=== PATIENT | male | born 1945 | race Caucasian/White ===

== ENCOUNTER 2019-09-18 07:54 | Outpatient (CLI) | payer MEDICARE, SELFPAY ==
[2019-09-18 08:11] LABS: Basophils Absolute Auto 0.05 K/mm3 (0.00-0.10); Basophils Percent Auto 0.8 % (0.0-1.0); Eosinophils Absolute Auto 0.38 K/mm3 (0.02-0.50); Hematocrit 45.2 % (37.0-46.0); Hemoglobin 15.6 g/dL (12.4-15.3); Immature Granulocyte Absolute 0.03 K/mm3 (0.00-0.00); Immature Granulocyte Percent A 0.5 % (0.0-0.0); Lymphocytes Absolute Auto 2.37 K/mm3 (1.10-4.50); Lymphocytes Percent Auto 37.2 % (18.0-42.0); Mean Corpuscular HGB Conc 34.5 g/dL (32.0-36.0); Mean Corpuscular Hemoglobin 31.5 pg (27.0-31.0); Mean Corpuscular Volume 91.1 fL (78.0-102.0); Mean Platelet Volume 9.9 fl (8.7-11.0); Monocytes Absolute Auto 0.68 K/mm3 (0.10-0.90); Monocytes Percent Auto 10.7 % (2.0-11.0); Neutrophils Absolute Auto 2.9 K/mm3 (1.7-7.2); Neutrophils Percent Auto 44.8 % (50.0-70.0); Platelet Count Result 171 K/mm3 (150-420); Red Blood Count 4.96 M/mm3 (4.70-6.10); Red Cell Distribution Width 12.3 % (11.6-14.4); White Blood Count 6.4 K/mm3 (4.8-10.8)
[2019-09-18 09:52] LABS: Hemoglobin A1C 7.7 % (<5.7)
[2019-09-18 09:59] LABS: Alanine Aminotransferase 23 U/L (16-63); Albumin Level 3.4 g/dL (3.4-5.0); Alkaline Phosphatase 66 U/L (46-116); Anion Gap 14.2 mmol/L (7-16); Aspartate Amino Transferase 13 U/L (15-37); Blood Urea Nitrogen 18 mg/dL (7-18); Calcium 8.9 mg/dL (8.5-10.1); Carbon Dioxide 27 mmol/L (21-32); Chloride 106 mmol/L (98-108); Cholesterol 233 mg/dL (0-200); Estimated Glomerular Filt Rate > 60; Glucose 162 mg/dL (70-99); HDL Direct 36 mg/dL (40-60); LDL Cholesterol Calculated 169 mg/dL (<130); Osmolality Calculated 301 mOsm/kg (285-295); Potassium 4.2 mmol/L (3.5-5.1); Sodium 143 mmol/L (136-145); Total Protein 6.6 g/dL (6.4-8.2); Triglycerides 142 mg/dL (0-150)
== END 2019-09-18 07:55 | disposition home or self-care (01) ==
PROVIDERS: PCP Family Medicine; Visit Provider Family Medicine
DX: E78.2 Mixed hyperlipidemia (principal); E11.9 Type 2 diabetes mellitus without complications; I10 Essential (primary) hypertension
CPT/HCPCS: 36415; 80053; 80061; 83036; 85025

== ENCOUNTER 2020-05-20 07:12 | Outpatient (CLI) | payer MEDICARE, SELFPAY ==
[2020-05-20 07:28] LABS: Basophils Absolute Auto 0.05 K/mm3 (0.00-0.10); Basophils Percent Auto 0.9 % (0.0-1.0); Eosinophils Absolute Auto 0.28 K/mm3 (0.02-0.50); Hemoglobin 15.2 g/dL (12.4-15.3); Immature Granulocyte Absolute 0.04 K/mm3 (0.00-0.00); Immature Granulocyte Percent A 0.7 % (0.0-0.0); Lymphocytes Absolute Auto 1.89 K/mm3 (1.10-4.50); Lymphocytes Percent Auto 33.5 % (18.0-42.0); Mean Corpuscular HGB Conc 33.8 g/dL (32.0-36.0); Mean Corpuscular Hemoglobin 31.5 pg (27.0-31.0); Mean Corpuscular Volume 93.2 fL (78.0-102.0); Mean Platelet Volume 9.9 fl (8.7-11.0); Monocytes Absolute Auto 0.56 K/mm3 (0.10-0.90); Monocytes Percent Auto 9.9 % (2.0-11.0); Neutrophils Absolute Auto 2.8 K/mm3 (1.7-7.2); Platelet Count Result 188 K/mm3 (150-420); Red Blood Count 4.83 M/mm3 (4.70-6.10); Red Cell Distribution Width 12.3 % (11.6-14.4); White Blood Count 5.7 K/mm3 (4.8-10.8)
[2020-05-20 07:40] LABS: Hemoglobin A1C 7.1 % (<5.7)
[2020-05-20 07:55] LABS: MALB Creatinine Ratio 10.5 mg/g (0-30); Microalbumin Urine Random 14.9 mg/L
[2020-05-20 08:37] LABS: Alanine Aminotransferase 27 U/L (16-63); Albumin Level 3.5 g/dL (3.4-5.0); Alkaline Phosphatase 72 U/L (46-116); Anion Gap 9 mmol/L (8-16); Aspartate Amino Transferase 11 U/L (15-37); Bilirubin,Total 0.8 mg/dL (0.00-1.00); Blood Urea Nitrogen 16 mg/dL (7-18); Calcium 8.8 mg/dL (8.5-10.1); Carbon Dioxide 26 mmol/L (21-32); Chloride 106 mmol/L (98-108); Cholesterol 157 mg/dL (0-200); Estimated Glomerular Filt Rate > 60; Glucose 154 mg/dL (70-99); HDL Direct 40 mg/dL (40-60); LDL Cholesterol Calculated 94 mg/dL (<130); Osmolality Calculated 296 mOsm/kg (285-295); Potassium 4.2 mmol/L (3.5-5.1); Prostate Specific Antigen 1.4 ng/mL (< OR = 4.0); Sodium 141 mmol/L (136-145); Total Protein 6.7 g/dL (6.4-8.2); Triglycerides 117 mg/dL (0-150)
== END 2020-05-20 07:13 | disposition home or self-care (01) ==
PROVIDERS: PCP Family Medicine; Visit Provider Family Medicine
DX: E11.9 Type 2 diabetes mellitus without complications (principal); Z12.5 Encounter for screening for malignant neoplasm of prostate; E78.2 Mixed hyperlipidemia; I10 Essential (primary) hypertension
CPT/HCPCS: 36415; 80053; 80061; 82043; 83036; 84153; 85025; G0103

== ENCOUNTER 2021-02-24 07:11 | Outpatient (CLI) | payer MEDICARE, SELFPAY ==
[2021-02-24 07:32] LABS: Basophils Absolute Auto 0.04 K/mm3 (0.00-0.10); Basophils Percent Auto 0.7 % (0.0-1.0); Eosinophils Absolute Auto 0.26 K/mm3 (0.02-0.50); Eosinophils Percent Auto 4.3 % (1.0-6.0); Hematocrit 45.3 % (37.0-46.0); Hemoglobin 15.4 g/dL (12.4-15.3); Immature Granulocyte Absolute 0.03 K/mm3 (0.00-0.00); Immature Granulocyte Percent A 0.5 % (0.0-0.0); Lymphocytes Absolute Auto 2.22 K/mm3 (1.10-4.50); Lymphocytes Percent Auto 36.5 % (18.0-42.0); Mean Corpuscular Hemoglobin 31.9 pg (27.0-31.0); Mean Corpuscular Volume 93.8 fL (78.0-102.0); Mean Platelet Volume 9.8 fl (8.7-11.0); Monocytes Absolute Auto 0.51 K/mm3 (0.10-0.90); Monocytes Percent Auto 8.4 % (2.0-11.0); Neutrophils Percent Auto 49.6 % (50.0-70.0); Platelet Count Result 184 K/mm3 (150-420); Red Blood Count 4.83 M/mm3 (4.70-6.10); Red Cell Distribution Width 12.4 % (11.6-14.4); White Blood Count 6.1 K/mm3 (4.8-10.8)
[2021-02-24 07:44] LABS: Hemoglobin A1C 7.8 % (<5.7)
[2021-02-24 08:12] LABS: Alanine Aminotransferase 37 U/L (16-63); Albumin Level 3.6 g/dL (3.4-5.0); Alkaline Phosphatase 59 U/L (46-116); Anion Gap 16 mmol/L (8-16); Aspartate Amino Transferase 16 U/L (15-37); Bilirubin,Total 0.9 mg/dL (0.00-1.00); Blood Urea Nitrogen 28 mg/dL (7-18); Calcium 8.8 mg/dL (8.5-10.1); Carbon Dioxide 24 mmol/L (21-32); Chloride 105 mmol/L (98-108); Cholesterol 163 mg/dL (0-200); Estimated Glomerular Filt Rate > 60; Glucose 134 mg/dL (70-99); HDL Direct 40 mg/dL (40-60); LDL Cholesterol Calculated 98 mg/dL (<130); Osmolality Calculated 307 mOsm/kg (285-295); Potassium 4.4 mmol/L (3.5-5.1); Sodium 145 mmol/L (136-145); Total Protein 6.6 g/dL (6.4-8.2); Triglycerides 124 mg/dL (0-150)
== END 2021-02-24 07:12 | disposition home or self-care (01) ==
LOC: CHSLAB 07:15
PROVIDERS: PCP Nurse Practitioner; Visit Provider Nurse Practitioner
DX: E11.9 Type 2 diabetes mellitus without complications (principal); I10 Essential (primary) hypertension; E78.2 Mixed hyperlipidemia
CPT/HCPCS: 36415; 80053; 80061; 83036; 85025

== ENCOUNTER 2021-08-31 17:38 | Inpatient (IN) | payer MEDICARE, SELFPAY ==
[2021-08-31] VITALS (7 sets, daily range): BP systolic 153–173; BP diastolic 64–76; PULSE 70–99; RESP 18–24; TEMP 37.7; O2SAT 70–96
--- NOTE | ~2021-08-31 | XR_ITS ---
XR chest 1V portable DATE: 09/03/2021 06:55 INDICATION: Covid-positive. Pneumonia. TECHNIQUE: Portable AP chest on 09/03/2021 at 0653 hours COMPARISON: 09/01/2021 CTA chest FINDINGS: There are patchy infiltrates in the mid and particularly lower lung zones, some air broncho grams noted in the left lower lobe. Findings are consistent with bilateral pneumonia. No pleural effu freida. Heart size is not optimally evaluated on AP projection because of magnification. Diffuse osteopenia. Degenerative spurring of the thoracic spine. IMPRESSION: Persistent bilateral, a mid and lower lung zone infiltrates consistent with bilateral pne umonia, likely Covid Reviewed, dictated and finalized at location A. ANICAL DESIGN TECHNICIAN IMPRESSION: Persistent bilateral, a mid and lower lung zone infiltrates consist ent with bilateral pneumonia, likely Covid
--- NOTE | ~2021-08-31 | CT_ITS ---
EXAMINATION: CT diagnostic chest wo con DATE: 08/31/2021 20:59 INDICATION: Shortness of breath, COVID 19 positive TECHNIQUE: Computed tomography (CT) of the chest was performed without intravenous contrast. The dose -length product (DLP) was 935.38 mGy-cm. Automated exposure control and iterative reconstruction tech Yoovi were employed. COMPARISON: None FINDINGS: There are groundglass opacities throughout the lungs, worst in the mid and lower lung zones . There is no pleural effusion or pneumothorax. The heart size is normal. There is calcified coronary artery atherosclerosis. There are no pathologically enlarged thoracic lymph nodes. Nodules of the ri ght thyroid lobe measure up to 2.1 cm. There is a small sliding hiatal hernia. Stones are present in the nondistended gallbladder. There are bridging osteophytes at multiple levels in the spine, consist ent with diffuse idiopathic skeletal hyperostosis (DISH). IMPRESSION: 1. Diffuse lung disease in a pattern consistent with COVID 19 pneumonia. 2. Indeterminate right thyroid nodules, consider thyroid ultrasound for risk stratification. 3. Cholelithiasis. Reviewed, dictated and finalized at location F. HOUSE KEEPER IMPRESSION: 1. Diffuse lung disease in a pattern consistent with COVID 19 pneumonia. 2. Indeterminate right thyroid nodules, consider thyroid ultrasound for risk st ratification. 3. Cholelithiasis.
--- NOTE | ~2021-08-31 | CT_ITS ---
EXAMINATION: CTA chest PE protocol EXAM DATE: 09/01/2021 15:18 INDICATION: elevated dimer SOB/COVID Positive/Elevated D Dimer TECHNIQUE: Spiral CTA of the chest (pulmonary arteries) was performed with 100 cc Omnipaque 350 intr avenous contrast injection. Images were acquired during the pulmonary arterial phase. Coronal maxi mum intensity projection 3D-reconstructions were created by the technologist on dedicated workstation . Axial, coronal and sagittal reformatted images were reviewed. The dose-length product (DLP) for t his examination was 1008.50 mGy-cm. The exposure was tailored according to patient size (auto mA ex posure control), and iterative reconstruction (ASIR) was used as additional dose reduction technique. Comparison is made to prior examination from 08/31/2021. FINDINGS: The main, central pulmonary arteries are dilated which can indicate elevated pulmonary thad rial pressure, pulmonary arterial hypertension. Pulmonary arteries are well opacified and without in traluminal filling defects. No thoracic aortic dissection. There is moderate amount of bilateral, lower lobe predominant groundglass airspace disease. Appearance is consistent with COVID pneumonia wh ich is most likely given community prevalence. There are no pleural or pericardial effusions. Trac heobronchial tree is patent. Mild reactive lymphadenopathy. There is no pneumothorax. Mild cardi omegaly. Thyroid nodules. There is moderate coronary arterial calcification, arterial sclerosis. Up per abdomen is unremarkable. Patient has diffuse idiopathic skeletal hyperostosis (DISH). IMPRESSION: 1. No pulmonary emboli. 2. Moderate amount of airspace disease probably COVID pneumonia. 3. Cardiomegaly. Dilated central pulmonary arteries. Reviewed, dictated and finalized at location G. ITY IMPROVEMENT COORDINATOR
--- NOTE | ~2021-08-31 | XR_ITS ---
XR chest 1V portable DATE: 09/04/2021 07:34 INDICATION: Shortness of breath. Covid infection. TECHNIQUE: Portable upright AP chest on 09/04/2021 at 0712 hours COMPARISON: 09/03/2021 portable AP chest 09/01/2021 CTA chest FINDINGS: There is moderate interval improvement of bilateral primarily mid and lower lung zone infil trates since 09/03/2021. No pleural effusion or pneumothorax. Heart size appears borderline. IMPRESSION: Moderate improvement of bilateral infiltrates since 09/03/2021 Reviewed, dictated and finalized at location A. 'S GARMENT FITTER
--- NOTE | 2021-08-31 18:01 | ECG_ITS ---
Measurements Intervals [place] Rate: 86 P: 23 SD: 239 QRS: -12 QRSD: 101 T: 66 QT: 331 QTc: 396 Interpretive Statements SINUS RHYTHM WITH FIRST DEGREE AV BLOCK WITH MARKED RHYTHM IRREGULARITY, POSSIBLE NON-CONDUCTED PAC, SA BLOCK, AV BLOCK LEFT VENTRICULAR HYPERTROPHY BASELINE ARTIFACT- I, II, III ABNORMAL ECG Electronically Signed On 08-31-2021 20:29:42 OCCUPATIONAL MEDICINE PHYSICIAN by Jefe Valle D.O.
[2021-08-31 18:42] LABS: Basophils Absolute Auto 0.02 K/mm3 (0.00-0.10); Basophils Percent Auto 0.2 % (0.0-1.0); Eosinophils Percent Auto 1.1 % (1.0-6.0); Immature Granulocyte Absolute 0.04 K/mm3 (0.00-0.00); Immature Granulocyte Percent A 0.4 % (0.0-0.0); Lymphocytes Absolute Auto 1.04 K/mm3 (1.10-4.50); Lymphocytes Percent Auto 11.1 % (18.0-42.0); Mean Corpuscular HGB Conc 34.9 g/dL (32.0-36.0); Mean Corpuscular Hemoglobin 31.8 pg (27.0-31.0); Mean Corpuscular Volume 91.1 fL (78.0-102.0); Mean Platelet Volume 10.6 fl (8.7-11.0); Monocytes Absolute Auto 0.36 K/mm3 (0.10-0.90); Monocytes Percent Auto 3.8 % (2.0-11.0); Neutrophils Absolute Auto 7.9 K/mm3 (1.7-7.2); Neutrophils Percent Auto 83.4 % (50.0-70.0); Platelet Count Result 198 K/mm3 (150-420); Red Blood Count 4.72 M/mm3 (4.70-6.10); White Blood Count 9.4 K/mm3 (4.8-10.8)
[2021-08-31 18:47] LABS: Base Excess ABG 0.4 mmol/L (0-2); Fractional Inspired Oxygen 21 %; HCO3 ABG 21.9 mmol/L (23-29); Modified Allen's Test Pass; Oxygen Content ABG 17.7 %vol (16.0-22.0); Oxygen Saturation ABG 85.8 % (95-97); Oxyhemoglobin 84.9 % (94-100); PCO2 ABG 27.4 mmHg (35-45); PO2 ABG 45.9 mmHg (75-85); PO2 FiO2 Ratio Arterial Blood 2.19 %; Site Drawn RIGHT RADIAL; Total Hemoglobin 14.9 g/dL (12.0-18.0); pH ABG 7.52 (7.35-7.45)
[2021-08-31 18:48] LABS: Device ROOM AIR
[2021-08-31] MEDS: DEXAMETHASONE SOD PHOS INJ 4 MG/ML VIAL IV PUSH (18:53)
[2021-08-31 18:59] LABS: Alanine Aminotransferase 33 U/L (16-63); Albumin Level 2.4 g/dL (3.4-5.0); Alkaline Phosphatase 65 U/L (46-116); Anion Gap 16 mmol/L (8-16); Aspartate Amino Transferase 36 U/L (15-37); Bilirubin,Total 0.9 mg/dL (0.00-1.00); Blood Urea Nitrogen 30 mg/dL (7-18); Carbon Dioxide 22 mmol/L (21-32); Chloride 96 mmol/L (98-108); Estimated CRCL calculation 53 ml/min; Estimated Glomerular Filt Rate 53; Glucose 236 mg/dL (70-99); Osmolality Calculated 292 mOsm/kg (285-295); Potassium 3.5 mmol/L (3.5-5.1); Sodium 134 mmol/L (136-145); Total Protein 6.8 g/dL (6.4-8.2); Troponin I 52.4 ng/L (0.00-60.4)
[2021-08-31 19:02] LABS: Lactic Acid Reflex 5.6 mmol/L (0.4-2.0)
[2021-08-31 19:05] LABS: NT Pro B Type Natriuretic Pept 779 pg/mL (0-450)
--- NOTE | 2021-08-31 19:22 | PC.NURSE ---
Report given to Jazzy
[2021-08-31] MEDS: ALBUTEROL SULFATE (*SP) INHALER 4 PUFF INHALATION (19:42)
[2021-08-31 19:43] LABS: Add Urine Microscopic? YES; Appearance Urine Clear (Clear); Bilirubin Urine 1+ (Negative); Blood Urine Negative (Negative); Color Urine Dark Yellow (Yellow); Glucose Urine UA Trace (Negative); Ketones Urine Trace (Negative); Leukocyte Esterase Ur Negative (Negative); Nitrate Urine Negative (Negative); Protein Urine 2+ (Negative); Specific Grav Ur >= 1.030 (1.010-1.020); pH Urine 5.5 (5.0-8.0)
[2021-08-31 19:45] LABS: SARS-CoV-2 Ag Positive (Negative)
[2021-08-31 19:49] LABS: Bacteria Urine Trace /hpf; RBC Urine 0-2 /hpf (0-2); Squamous Epithelial Cell Urine Few /hpf (Few); WBC Urine 0-3 /hpf (0-3)
[2021-08-31] MEDS: UMECLIDINIUM BROMIDE 62.5 MCG ELLIPTA 1 PUFF INHALATION (20:43)
[2021-08-31] MEDS: FUROSEMIDE INJ 40 MG/4 ML VIAL IV PUSH (21:14)
[2021-08-31] MEDS: SODIUM CHLORIDE 0.9% IV 500 ML 999 ML IV CONT (21:14)
[2021-08-31] MEDS: AZITHROMYCIN 250 MG TABLET 500 MG PO (21:15)
[2021-08-31 21:33] LABS: Reflex Lactic Acid Yes or No Add Lactic
[2021-08-31 22:45] LABS: Base Excess ABG 2.5 mmol/L (0-2); HCO3 ABG 25.1 mmol/L (23-29); Oxygen Content ABG 18.6 %vol (16.0-22.0); Oxygen Saturation ABG 93.8 % (95-97); Oxyhemoglobin 93.3 % (94-100); PCO2 ABG 32.8 mmHg (35-45); PO2 ABG 65.6 mmHg (75-85); Total Hemoglobin 14.2 g/dL (12.0-18.0)
[2021-08-31 22:48] LABS: Device ROOM AIR; Modified Allen's Test Pass; Site Drawn RIGHT RADIAL
[2021-08-31 23:06] LABS: Lactic Acid 1.7 mmol/L (0.4-2.0)
--- NOTE | 2021-08-31 23:39 | ED.SOB ---
HPI - SOB/Dyspnea General Chief Complaint: Shortness of Breath/Dyspnea Stated Complaint: SOB, oxy at +66 Time Seen by Provider: 08/31/21 17:42 Source: patient and RN notes reviewed Mode of arrival: wheelchair Limitations: no limitations History of Present Illness MD elicited complaint: shortness of breath and cough Pertinent past history: diabetes Onset (ago): day(s) (2) Context: recent illness Timing: constant Severity: moderate Exacerbating factors: lying flat Relieving factors: oxygen and bronchodilators Known history of: diabetes Associated symptoms: chest pain, pain with inspiration and cough Treatment prior to arrival: bronchodilator Related Data Home oxygen amount: none Home Medications Medication Instructions Recorded Confirmed amlodipine 10 mg PO DAILY 08/31/21 08/31/21 glimepiride 2 mg PO DAILY 08/31/21 08/31/21 lisinopril 20 mg PO DAILY 08/31/21 08/31/21 metformin 500 mg PO DAILY 08/31/21 08/31/21 metoprolol succinate 100 mg PO DAILY 08/31/21 08/31/21 pravastatin 20 mg PO DAILY 08/31/21 08/31/21 semaglutide [Ozempic] 0.25 mg SUBCUT WEEKLY 08/31/21 08/31/21 Allergies Allergy/AdvReac Type Severity Reaction Status Date / Time No Known Allergies Allergy Unknown Verified 08/31/21 17:57 Review of Systems Review of Systems: All systems reviewed & are unremarkable except as noted in HPI and below PMFSH Past Medical History Medical History Community acquired pneumonia Family History Family History Father Patient's father is Social History Social History Smoking status: Former smoker Second hand tobacco smoke exposure: No Smoking end date: 08/18/71 Alcohol intake: current Exam Const: General: alert and ill appearing Nutritional Appearance: obese Orientation/consciousness: patient oriented x3 HENMT: Head: normal to inspection Ears: external ears normal and TM's normal bilaterally General nose exam: Normal external nose present and Normal nares present Face and sinus: normal facial exam and sinuses nontender Mouth: Yes moist mucous membranes Eyes: Pupils: Equal, round and reactive pupils present Neck: Neck: normal visual inspection and no lymphadenopathy Chest: Chest palpation & inspection: normal inspection of the chest Resp: Effort & Inspection: tachypneic and uses accessory muscles Auscultation: crackles, rales, rhonchi and wheezes Cardio: Rate: regular rate Rhythm: regular rhythm GI: GI Palp: Yes Soft to palpation and No Tenderness to palpation present (GI) Percussion: Yes normal to percussion Auscultation: normal bowel sounds : General: Yes no CVA tenderness Male General Exam: Yes normal external exam Back/Spine/Pelvis: Back: no CVA tenderness Skin: General skin exam: normal color and jaundice Rashes: no rashes Neuro: General: patient oriented x3, moves all extremities, no meningeal signs, no focal motor deficits and CN's II-XI intact bilaterally Extrem: General: normal to inspection and no pedal edema Psych: Affect: normal affect Attitude: cooperative Thought content: Yes Normal thought content present Course Course Emergency Course: Pt for admission Reevaluation(s) Reevaluation #1: Pt was still SOB. Date: 08/31/21 Time: 18:35 Vital Signs Vital signs: Vital Signs Temperature 37.7 C H 08/31/21 18:00 Pulse Rate 99 08/31/21 18:00 Respiratory Rate 24 H 08/31/21 18:00 Blood Pressure 153/64 H 08/31/21 18:00 Pulse Oximetry 70 L 08/31/21 18:00 Temperature 37.7 C H 08/31/21 18:00 Pulse Rate 74 08/31/21 19:43 Respiratory Rate 18 08/31/21 19:43 Blood Pressure 173/72 H 08/31/21 19:14 Pulse Oximetry 91 08/31/21 19:43 MDM - SOB/Dyspnea Differential Diagnosis Differential diagnosis: Likely acute exacerbation of chronic obstructive airways dise
[2021-09-01] VITALS (11 sets, daily range): BP systolic 134–146; BP diastolic 64–84; PULSE 70–112; RESP 16–20; TEMP 36–37.1; O2SAT 85–95; BMI 34.0
--- NOTE | 2021-09-01 00:59 | PC.NURSE ---
Patient admitted to room 209 from the ER, is alert and oriented with no c/o pain, o2 at 4 l per n/c, no distress noted, oriented to room and call light, ambulates independently.
[2021-09-01] MEDS: REMDESIVIR 200 MG/NS 250 ML 200 MG/250 ML BAG 250 MG IVPB (03:17)
[2021-09-01] MEDS: ALBUTEROL SULFATE (*SP) INHALER 4 PUFF INHALATION ×2 (06:06→10:30)
[2021-09-01 07:07] LABS: Basophils Absolute Auto 0.02 K/mm3 (0.00-0.10); Basophils Percent Auto 0.3 % (0.0-1.0); Eosinophils Absolute Auto 0.01 K/mm3 (0.02-0.50); Eosinophils Percent Auto 0.1 % (1.0-6.0); Hemoglobin 13.8 g/dL (12.4-15.3); Immature Granulocyte Absolute 0.04 K/mm3 (0.00-0.00); Immature Granulocyte Percent A 0.6 % (0.0-0.0); Lymphocytes Absolute Auto 1.03 K/mm3 (1.10-4.50); Lymphocytes Percent Auto 14.2 % (18.0-42.0); Mean Corpuscular HGB Conc 33.7 g/dL (32.0-36.0); Mean Corpuscular Hemoglobin 30.9 pg (27.0-31.0); Mean Corpuscular Volume 91.9 fL (78.0-102.0); Mean Platelet Volume 10.6 fl (8.7-11.0); Monocytes Absolute Auto 0.39 K/mm3 (0.10-0.90); Monocytes Percent Auto 5.4 % (2.0-11.0); Neutrophils Absolute Auto 5.8 K/mm3 (1.7-7.2); Neutrophils Percent Auto 79.4 % (50.0-70.0); Platelet Count Result 205 K/mm3 (150-420); Red Blood Count 4.46 M/mm3 (4.70-6.10); Red Cell Distribution Width 11.9 % (11.6-14.4); White Blood Count 7.3 K/mm3 (4.8-10.8)
[2021-09-01 07:14] LABS: INR 1.1; Prothrombin Time 11.5 Seconds (9.50-12.10)
[2021-09-01 07:20] LABS: Alanine Aminotransferase 27 U/L (16-63); Albumin Level 2.2 g/dL (3.4-5.0); Alkaline Phosphatase 58 U/L (46-116); Anion Gap 12 mmol/L (8-16); Aspartate Amino Transferase 30 U/L (15-37); Bilirubin,Total 0.7 mg/dL (0.00-1.00); Blood Urea Nitrogen 25 mg/dL (7-18); Calcium 8.8 mg/dL (8.5-10.1); Carbon Dioxide 28 mmol/L (21-32); Chloride 98 mmol/L (98-108); Estimated CRCL calculation 67 ml/min; Estimated Glomerular Filt Rate > 60; Glucose 251 mg/dL (70-99); Osmolality Calculated 298 mOsm/kg (285-295); Potassium 3.7 mmol/L (3.5-5.1); Sodium 138 mmol/L (136-145); Total Protein 6.4 g/dL (6.4-8.2)
[2021-09-01] MEDS: GLIMEPIRIDE 2 MG TABLET PO (08:00)
[2021-09-01] MEDS: DEXAMETHASONE SOD PHOS INJ 4 MG/ML VIAL IV PUSH ×2 (08:00→20:28)
[2021-09-01] MEDS: UMECLIDINIUM BROMIDE 62.5 MCG ELLIPTA 1 PUFF INHALATION (09:00)
[2021-09-01] MEDS: metFORMIN HCL 500 MG TABLET PO (09:28)
[2021-09-01] MEDS: METOPROLOL SUCCINATE EXT REL 50 MG TABCR 100 MG PO (09:28)
[2021-09-01] MEDS: PRAVASTATIN SODIUM 20 MG TABLET PO (09:29)
[2021-09-01] MEDS: amLODIPine BESYLATE 5 MG TABLET 10 MG PO (09:29)
[2021-09-01] MEDS: lisinopriL 20 MG TABLET PO (09:30)
[2021-09-01] MEDS: guaiFENesin 12 HR 600 MG TABCR PO ×2 (09:30→20:29)
[2021-09-01 10:57] LABS: Base Excess ABG 2.8 mmol/L (0-2); HCO3 ABG 25.4 mmol/L (23-29); Oxygen Content ABG 16.3 %vol (16.0-22.0); Oxygen Saturation ABG 93.1 % (95-97); Oxyhemoglobin 92.7 % (94-100); PCO2 ABG 32.8 mmHg (35-45); PO2 ABG 62.6 mmHg (75-85); Total Hemoglobin 12.5 g/dL (12.0-18.0); pH ABG 7.51 (7.35-7.45)
[2021-09-01 10:58] LABS: Device NASAL CANNULA; Modified Allen's Test Pass; Site Drawn RIGHT RADIAL
[2021-09-01] MEDS: BARICITINIB 2 MG TABLET 4 MG PO (11:38)
--- NOTE | 2021-09-01 13:33 | PM.IMHP ---
H&P: HPI History of Present Illness Date/Time: 09/01/21 13:33 [age]-year-old male that presented to urgent care with complaints of shortness of breath, chills and fevers, hypoxia,diarrhea, and cough. Patient has a past medical history of pneumonia. According to patient he developed shortness of breath, with chills fevers diarrhea and a cough. On this is when he decided to test for covid Which was positive. Patient notes that one of his family members are medical and decided to take his oxygen level. Patient notes that when he took his pulse ox level and his oxygen was 58 . After his family members medical saturation level she noted that he needs our department [facility]IM. This is when the patient presented to the emergency department. Patient is fully vaccinated and is unsure why he might have possibly come in contact with a COVID-positive person. Vital signs 146/71, 112, 16, 98.2, 95% on 4 L nasal cannula, WBC 7.3, hemoglobin 13.8, hematocrit 41.8, platelets 205, ABG pH 7.50, CO2 32.8, O2 65.6, bicarb 25.1, sodium 138, potassium 3.7, BUN 25, creatinine 1.05, glucose 251,, lactic acid 1.7, chest x-ray indicate COVID-pneumonia. The patient denies CP, palpitation, extremity numbness, lightheadedness, dizziness,and constipation. Chief Complaint: Shortness of breath, fevers, chills, diarrhea Review of Systems Review of Systems: A 14 organ system Review of Systems was performed and pertinent positives included in the HPI, otherwise remaining ROS is negative. [facility] Past Medical History Medical History Community acquired pneumonia Family History Family History Father Patient's father is Social History Social History Smoking status: Never smoker Second hand tobacco smoke exposure: No Smoking end date: 08/18/71 Alcohol intake: never Substance use: never Substance use type: does not use Spiritual care concerns: No Meds Home Medications and Allergies Home Medications Medication Instructions Recorded Confirmed Type amlodipine 10 mg PO DAILY 08/31/21 08/31/21 History glimepiride 2 mg PO DAILY 08/31/21 08/31/21 History lisinopril 20 mg PO DAILY 08/31/21 08/31/21 History metformin 500 mg PO DAILY 08/31/21 08/31/21 History metoprolol succinate 100 mg PO DAILY 08/31/21 08/31/21 History pravastatin 20 mg PO DAILY 08/31/21 08/31/21 History semaglutide [Ozempic] 0.25 mg SUBCUT WEEKLY 08/31/21 08/31/21 History Allergies Allergy/AdvReac Type Severity Reaction Status Date / Time No Known Allergies Allergy Unknown Verified 08/31/21 17:57 Vital Signs Vital Signs - 24 hr 08/31/21 18:00 08/31/21 19:14 08/31/21 19:42 Temperature 99.8 F H Pulse Rate 99 91 87 Respiratory Rate 24 H 20 20 Blood Pressure 153/64 H 173/72 H Pulse Oximetry 70 L 91 91 08/31/21 19:43 08/31/21 23:18 08/31/21 23:45 Temperature Pulse Rate 74 70 79 Respiratory Rate 18 18 Blood Pressure 154/76 H Pulse Oximetry 91 90 96 08/31/21 23:55 09/01/21 00:00 09/01/21 03:18 Temperature 96.8 F L 98.8 F Pulse Rate 76 70 70 Respiratory Rate 18 20 20 Blood Pressure 143/72 H 144/64 H Pulse Oximetry 96 90 92 09/01/21 04:00 09/01/21 08:00 09/01/21 09:28 Temperature 98.8 F Pulse Rate 89 80 111 H Respiratory Rate 16 Blood Pressure 136/73 Pulse Oximetry 95 09/01/21 10:30 09/01/21 12:00 Temperature 98.2 F Pulse Rate 112 H Respiratory Rate 16 Blood Pressure 146/70 H Pulse Oximetry 85 L 95 Exam Narrative: GENERAL: This is a well-nourished, well-developed patient, in no apparent distress. HEAD: normocephalic, atraumatic. EYES: PERRL. Sclera clear/white. Vision is grossly intact. EARS: External ears normal, auditory canals clear and without drainage, TMs normal without perforation. Hearing grossly intact. NOSE: External nose
[2021-09-01 14:34] LABS: D Dimer 1.46 mg/L (0.19-0.50)
[2021-09-01] MEDS: LORATADINE 10 MG TABLET PO (18:00)
[2021-09-01] MEDS: BENZONATATE 100 MG CAPSULE 200 MG PO (18:01)
[2021-09-01] MEDS: ENOXAPARIN 30 MG/0.3 ML SYRINGE SUB-Q (20:28)
[2021-09-01] MEDS: REMDESIVIR 100 MG/NS 250 ML 100 MG/250 ML BAG 250 MG IVPB (22:28)
--- NOTE | 2021-09-01 22:50 | PC.NURSE ---
Patient up to bathroom takes portable O2 with him. Patient has SOB after amb to/from bathroom. Alert and forgetful at times. Pleasant. Call light and belonging within reach.
[2021-09-02] VITALS (8 sets, daily range): BP systolic 132–165; BP diastolic 70–86; PULSE 64–111; RESP 14–20; TEMP 36.6–37.4; O2SAT 90–95
--- NOTE | 2021-09-02 00:20 | PC.NURSE ---
Pt resting quietly in bed and doesnt voice any c/o discomfort. Pt' SAo2 is 94% with oxygen on at 5 liters per nasal cannula and no signs of respiratory distress noted.
--- NOTE | 2021-09-02 02:10 | PC.NURSE ---
Pt asleep and no signs of discomfort or respiratory distress noted.
--- NOTE | 2021-09-02 04:00 | PC.NURSE ---
IV antibiotic infusing as ordered. Pt voided 200 ml of medium darvin urine in the urinal.
[2021-09-02 06:27] LABS: Basophils Absolute Auto 0.01 K/mm3 (0.00-0.10); Basophils Percent Auto 0.2 % (0.0-1.0); Eosinophils Absolute Auto 0.12 K/mm3 (0.02-0.50); Eosinophils Percent Auto 2.1 % (1.0-6.0); Hematocrit 36.5 % (37.0-46.0); Hemoglobin 13.2 g/dL (12.4-15.3); Immature Granulocyte Absolute 0.06 K/mm3 (0.00-0.00); Immature Granulocyte Percent A 1.1 % (0.0-0.0); Lymphocytes Absolute Auto 0.94 K/mm3 (1.10-4.50); Lymphocytes Percent Auto 16.5 % (18.0-42.0); Mean Corpuscular HGB Conc 36.2 g/dL (32.0-36.0); Mean Corpuscular Hemoglobin 33.8 pg (27.0-31.0); Mean Corpuscular Volume 93.6 fL (78.0-102.0); Mean Platelet Volume 10.5 fl (8.7-11.0); Monocytes Absolute Auto 0.38 K/mm3 (0.10-0.90); Monocytes Percent Auto 6.7 % (2.0-11.0); Neutrophils Absolute Auto 4.2 K/mm3 (1.7-7.2); Neutrophils Percent Auto 73.4 % (50.0-70.0); Platelet Count Result 228 K/mm3 (150-420); Red Cell Distribution Width 11.9 % (11.6-14.4); White Blood Count 5.7 K/mm3 (4.8-10.8)
[2021-09-02 06:38] LABS: INR 1.1; Prothrombin Time 11.9 Seconds (9.50-12.10)
[2021-09-02 06:44] LABS: Alanine Aminotransferase 39 U/L (16-63); Alkaline Phosphatase 52 U/L (46-116); Anion Gap 8 mmol/L (8-16); Aspartate Amino Transferase 34 U/L (15-37); Bilirubin,Total 0.5 mg/dL (0.00-1.00); Blood Urea Nitrogen 26 mg/dL (7-18); Calcium 8.8 mg/dL (8.5-10.1); Carbon Dioxide 29 mmol/L (21-32); Chloride 101 mmol/L (98-108); Estimated CRCL calculation 92 ml/min; Estimated Glomerular Filt Rate > 60; Glucose 200 mg/dL (70-99); Magnesium 2.1 mg/dL (1.8-2.4); Osmolality Calculated 296 mOsm/kg (285-295); Potassium 3.7 mmol/L (3.5-5.1); Sodium 138 mmol/L (136-145)
[2021-09-02 07:15] LABS: Alanine Aminotransferase 39 U/L (16-63); Aspartate Amino Transferase 34 U/L (15-37)
[2021-09-02] MEDS: ALBUTEROL SULFATE (*SP) INHALER 4 PUFF INHALATION ×5 (08:00→14:30)
[2021-09-02] MEDS: ENOXAPARIN 30 MG/0.3 ML SYRINGE SUB-Q ×2 (09:00→20:19)
[2021-09-02] MEDS: UMECLIDINIUM BROMIDE 62.5 MCG ELLIPTA 1 PUFF INHALATION (09:00)
[2021-09-02] MEDS: guaiFENesin 12 HR 600 MG TABCR PO ×2 (10:02→20:19)
[2021-09-02] MEDS: DEXAMETHASONE SOD PHOS INJ 4 MG/ML VIAL IV PUSH ×2 (10:02→20:17)
[2021-09-02] MEDS: metFORMIN HCL 500 MG TABLET PO (10:02)
[2021-09-02] MEDS: BENZONATATE 100 MG CAPSULE 200 MG PO ×3 (10:03→17:09)
[2021-09-02] MEDS: PRAVASTATIN SODIUM 20 MG TABLET PO (10:03)
[2021-09-02] MEDS: METOPROLOL SUCCINATE EXT REL 50 MG TABCR 100 MG PO (10:04)
[2021-09-02] MEDS: LORATADINE 10 MG TABLET PO (10:04)
[2021-09-02] MEDS: GLIMEPIRIDE 2 MG TABLET PO (10:04)
[2021-09-02] MEDS: amLODIPine BESYLATE 5 MG TABLET 10 MG PO (10:04)
[2021-09-02] MEDS: lisinopriL 20 MG TABLET PO (10:05)
[2021-09-02] MEDS: BARICITINIB 2 MG TABLET 4 MG PO (11:00)
--- NOTE | 2021-09-02 13:35 | WPDPN ---
Progress Note: A&P Assessment and Plan (1) Community acquired pneumonia: Qualifiers: Laterality: unspecified laterality Qualified Code(s): J18.9 - Pneumonia, unspecified organism <Martin Reyes SKIDDERChristinChai - Last Filed: 09/02/21 13:41> Code(s): J18.9 - Pneumonia, unspecified organism <Martin Reyes NINO - Last Filed: 09/02/21 13:41> Status: Acute <Martin ReyesRIANHeatherChai - Last Filed: 09/02/21 13:41> Assessment and Plan: Azithromycin and Rocephin Blood NGTD WBCs and lactic acid within normal limit <Martin ThomsonFERNANDEZ GarciaChristinChai - Last Filed: 09/02/21 13:41> (2) COVID-19: Code(s): U07.1 - COVID-19 <Martin Gallardo Eric NINO - Last Filed: 09/02/21 13:41> Status: Acute <Martin Reyes NINO - Last Filed: 09/02/21 13:41> Assessment and Plan: Continue remdesivir along with dexamethasone and olumiant Continue guaifenesin, Tessalon Perles, Claritin, inhalers, supplemental Patient has been fully vaccinated Will complete home oxygen evaluation on discharg Repeat blood gas not much change from previous blood gas pH 7.51, PCO2 32.8, PO2 62.6, bicarb 25.4 Repeat chest x-ray and ABG in the a.m. <Scottdwain BertoFERNANDEZ GarciaChristinChai - Last Filed: 09/02/21 13:41> Subjective Date/time seen: 09/02/21 13:35 patient condition has improved. Patient notes that he still requires oxygen in the ambulance to the restroom. Patient will more than likely need a home O2 evaluation on discharge. Patient slept well overnight and able to tolerate his meal.the patient denies CP, palpitation, extremity numbness, lightheadedness, dizziness, constipation, diarrhea, chills, or fever. <NINO Potter - Last Filed: 09/02/21 13:41> Review of Systems Review of Systems: A 14 organ system Review of Systems was performed and pertinent positives included in the HPI, otherwise remaining ROS is negative. <NINO Potter - Last Filed: 09/02/21 13:41> Exam Narrative: GENERAL: This is a well-nourished, well-developed patient, in no apparent distress. HEAD: normocephalic, atraumatic. EYES: PERRL. Sclera clear/white. Vision is grossly intact. EARS: External ears normal, auditory canals clear and without drainage, TMs normal without perforation. Hearing grossly intact. NOSE: External nose normal with no obvious nasal discharge, nares without redness, no rhinorrhea. THROAT: Mucous membranes moist, posterior pharynx clear. NECK: Neck supple, non-tender without lymphadenopathy, masses or thyromegaly. CARDIOVASCULAR: Regular rate and rhythm without murmurs, gallops, or rubs. RESPIRATORY: Diminished GASTROINTESTINAL: Abdomen soft, non-tender, nondistended. Bowel sounds are active. No hepato-splenomegaly, or palpable masses. No guarding. SKIN: warm, intact with no suspicious lesions or rash, good texture and turgor. NEURO: awake, alert, and oriented to person, place and time. There were no obvious focal neurologic abnormalities. Steady gait EXTREMITIES: Normal range of motion. No edema. No calf tenderness. Negative Homans sign bilaterally. BACK: Nontender without deformity or crepitance. No flank tenderness. <NINO Potter - Last Filed: 09/02/21 13:41> Objective Data Vital Signs Vital Signs: Vital Signs - 24 hr 09/01/21 15:42 09/01/21 16:00 09/01/21 20:00 Temperature 97 F L 97.4 F L Pulse Rate 72 74 Respiratory Rate 18 18 Blood Pressure 134/84 140/80 Pulse Oximetry 94 94 09/02/21 00:00 09/02/21 04:00 09/02/21 08:00 Temperature 99.3 F 98.2 F 98.4 F Pulse Rate 64 86 100 Respiratory Rate 20 20 16 Blood Pressure 148/73 H 152/86 H 148/75 H Pulse Oximetry 94 90 95 09/02/21 10:04 Temperature Pulse Rate 85 Respiratory Rate Blood Pressure Pulse Oximetry <NINO Potter - Last Filed: 09/02/21 13:41> Intake/Output Intake/Output: Intake & Output 08/30/21 08/31/21 09/01/21 09/02/21 23:59 23:59 23:59 23:59
[2021-09-02] MEDS: REMDESIVIR 100 MG/NS 250 ML 100 MG/250 ML BAG 250 MG IVPB (22:10)
[2021-09-03] VITALS (9 sets, daily range): BP systolic 119–155; BP diastolic 69–80; PULSE 66–87; RESP 18–20; TEMP 36.1–36.8; O2SAT 88–98
--- NOTE | 2021-09-03 00:20 | PC.NURSE ---
Patient alert and oriened x3. Able to verbalize needs. Amb to/from bathroom using portable O2. Gait steady. Cont of Band B. Patient stated several times that he feels really good today and hopes to go home tomorrow . Call light and belongings within reach. IV site clean, dry, intact. Flushed without difficulty.
--- NOTE | 2021-09-03 00:25 | PC.NURSE ---
Pt resting in bed and watching TV. Pt doesnt voice any c/o shortness of breath and oxygen is on at 5 liters per nasal cannula. SAo2 is 95% and no signs of respiratory distress noted.
--- NOTE | 2021-09-03 02:35 | PC.NURSE ---
Pt asleep and respirations remain even and unlabored. No signs of respiratory distress noted.
--- NOTE | 2021-09-03 04:33 | PC.NURSE ---
IV antibiotic infusing as ordered. Pt up to the bathroom to void and doesnt voice any c/o discomfort.
[2021-09-03 06:40] LABS: Base Excess ABG 4.1 mmol/L (0-2); HCO3 ABG 28.1 mmol/L (23-29); Oxygen Content ABG 14.8 %vol (16.0-22.0); Oxygen Saturation ABG 84.8 % (95-97); Oxyhemoglobin 84.6 % (94-100); PO2 ABG 47.4 mmHg (75-85); Total Hemoglobin 12.5 g/dL (12.0-18.0); pH ABG 7.47 (7.35-7.45)
--- NOTE | 2021-09-03 06:40 | PC.NURSE ---
Pt watching tv and doesnt voice any c/o respiratory distress.
[2021-09-03 06:53] LABS: Basophils Absolute Auto 0.02 K/mm3 (0.00-0.10); Basophils Percent Auto 0.2 % (0.0-1.0); Hematocrit 36.8 % (37.0-46.0); Hemoglobin 13.8 g/dL (12.4-15.3); Immature Granulocyte Absolute 0.09 K/mm3 (0.00-0.00); Immature Granulocyte Percent A 0.9 % (0.0-0.0); Lymphocytes Absolute Auto 1.11 K/mm3 (1.10-4.50); Lymphocytes Percent Auto 11.5 % (18.0-42.0); Mean Corpuscular HGB Conc 37.5 g/dL (32.0-36.0); Mean Corpuscular Hemoglobin 35.5 pg (27.0-31.0); Mean Corpuscular Volume 94.6 fL (78.0-102.0); Mean Platelet Volume 10.6 fl (8.7-11.0); Monocytes Absolute Auto 0.46 K/mm3 (0.10-0.90); Monocytes Percent Auto 4.7 % (2.0-11.0); Neutrophils Percent Auto 82.7 % (50.0-70.0); Platelet Count Result 300 K/mm3 (150-420); Red Blood Count 3.89 M/mm3 (4.70-6.10); Red Cell Distribution Width 12.3 % (11.6-14.4); White Blood Count 9.7 K/mm3 (4.8-10.8)
[2021-09-03 06:54] LABS: Alanine Aminotransferase 42 U/L (16-63); Albumin Level 2.1 g/dL (3.4-5.0); Alkaline Phosphatase 53 U/L (46-116); Anion Gap 9 mmol/L (8-16); Aspartate Amino Transferase 25 U/L (15-37); Bilirubin,Total 0.4 mg/dL (0.00-1.00); Blood Urea Nitrogen 25 mg/dL (7-18); Calcium 8.8 mg/dL (8.5-10.1); Carbon Dioxide 27 mmol/L (21-32); Chloride 102 mmol/L (98-108); Estimated CRCL calculation 90 ml/min; Estimated Glomerular Filt Rate > 60; Glucose 157 mg/dL (70-99); Magnesium 1.9 mg/dL (1.8-2.4); Osmolality Calculated 293 mOsm/kg (285-295); Potassium 3.6 mmol/L (3.5-5.1); Sodium 138 mmol/L (136-145)
[2021-09-03 06:55] LABS: INR 1.2; Prothrombin Time 12.7 Seconds (9.50-12.10)
[2021-09-03 07:01] LABS: Modified Allen's Test Pass; Site Drawn RIGHT RADIAL
[2021-09-03 07:02] LABS: Device NASAL CANNULA
[2021-09-03] MEDS: BENZONATATE 100 MG CAPSULE 200 MG PO ×3 (11:30→18:25)
[2021-09-03] MEDS: DEXAMETHASONE SOD PHOS INJ 4 MG/ML VIAL IV PUSH ×2 (11:33→20:02)
[2021-09-03] MEDS: BARICITINIB 2 MG TABLET 4 MG PO (11:33)
[2021-09-03] MEDS: ENOXAPARIN 30 MG/0.3 ML SYRINGE SUB-Q ×2 (11:33→20:02)
[2021-09-03] MEDS: METOPROLOL SUCCINATE EXT REL 50 MG TABCR 100 MG PO (11:34)
[2021-09-03] MEDS: PRAVASTATIN SODIUM 20 MG TABLET PO (11:34)
[2021-09-03] MEDS: amLODIPine BESYLATE 5 MG TABLET 10 MG PO (11:35)
[2021-09-03] MEDS: LORATADINE 10 MG TABLET PO (11:35)
[2021-09-03] MEDS: guaiFENesin 12 HR 600 MG TABCR PO ×2 (11:35→20:02)
[2021-09-03] MEDS: lisinopriL 20 MG TABLET PO (11:36)
[2021-09-03] MEDS: GLIMEPIRIDE 2 MG TABLET PO (11:36)
[2021-09-03] MEDS: metFORMIN HCL 500 MG TABLET PO (11:36)
[2021-09-03] MEDS: UMECLIDINIUM BROMIDE 62.5 MCG ELLIPTA 1 PUFF INHALATION (11:36)
[2021-09-03 13:53] LABS: Base Excess ABG 3.9 mmol/L (0-2); HCO3 ABG 26.7 mmol/L (23-29); Oxygen Content ABG 26.6 %vol (16.0-22.0); Oxygen Saturation ABG 97.2 % (95-97); Oxyhemoglobin 96.5 % (94-100); PCO2 ABG 35.1 mmHg (35-45); PO2 ABG 92.2 mmHg (75-85); Total Hemoglobin 19.6 g/dL (12.0-18.0)
[2021-09-03 13:56] LABS: Modified Allen's Test Pass; Site Drawn RIGHT RADIAL
[2021-09-03 13:57] LABS: Device NASAL CANNULA
[2021-09-03] MEDS: ALBUTEROL SULFATE (*SP) INHALER 4 PUFF INHALATION ×2 (14:30→20:05)
--- NOTE | 2021-09-03 15:06 | WPDPN ---
Progress Note: A&P Assessment and Plan (1) Community acquired pneumonia: Qualifiers: Laterality: unspecified laterality Qualified Code(s): J18.9 - Pneumonia, unspecified organism Code(s): J18.9 - Pneumonia, unspecified organism Status: Acute Assessment and Plan: Azithromycin and Rocephin day 3 out of 7 Blood NGTD WBCs and lactic acid within normal limit (2) COVID-19: Code(s): U07.1 - COVID-19 Status: Acute Assessment and Plan: Continue remdesivir along with dexamethasone and olumiant Continue guaifenesin, Tessalon Perles, Claritin, inhalers, supplemental Patient has been fully vaccinated Will complete home oxygen evaluation on discharg Repeat blood gas not much change from previous blood gas pH 7.51, PCO2 32.8, PO2 62.6, bicarb 25.4 Repeat chest x-ray and ABG in the a.m. Prone atleast 8 hours Worsening ABG patient placed on Ventimask afterwards ABG improved (3) Elevated brain natriuretic peptide (BNP) level: Code(s): R79.89 - Other specified abnormal findings of blood chemistry Status: Acute Assessment and Plan: BNP slightly elevated 779 BNP and echo pending Subjective Date/time seen: 09/03/21 15:06 patient has no complaints today he only notes that he did not feel well overnight due to the environment. Home oxygen evaluation completed today for possible discharge. Patient failed home evaluation on 8 L with activity patients sats dropped to 86%. Patient did admit that he felt dizzy with ambulation. Also his blood gas worsened so he was placed on a venti mask with improvement in his ABG. The patient denies CP, palpitation, extremity numbness, lightheadedness, constipation, diarrhea, chills, or fever. Review of Systems Review of Systems: A 14 organ system Review of Systems was performed and pertinent positives included in the HPI, otherwise remaining ROS is negative. Exam Narrative: GENERAL: This is a well-nourished, well-developed patient, in no apparent distress. HEAD: normocephalic, atraumatic. EYES: PERRL. Sclera clear/white. Vision is grossly intact. EARS: External ears normal, auditory canals clear and without drainage, TMs normal without perforation. Hearing grossly intact. NOSE: External nose normal with no obvious nasal discharge, nares without redness, no rhinorrhea. THROAT: Mucous membranes moist, posterior pharynx clear. NECK: Neck supple, non-tender without lymphadenopathy, masses or thyromegaly. CARDIOVASCULAR: Regular rate and rhythm without murmurs, gallops, or rubs. RESPIRATORY: Diminished GASTROINTESTINAL: Abdomen soft, non-tender, nondistended. Bowel sounds are active. No hepato-splenomegaly, or palpable masses. No guarding. SKIN: warm, intact with no suspicious lesions or rash, good texture and turgor. NEURO: awake, alert, and oriented to person, place and time. There were no obvious focal neurologic abnormalities. Steady gait EXTREMITIES: Normal range of motion. No edema. No calf tenderness. Negative Homans sign bilaterally. BACK: Nontender without deformity or crepitance. No flank tenderness. Objective Data Vital Signs Vital Signs: Vital Signs - 24 hr 09/02/21 16:00 09/02/21 20:00 09/03/21 00:00 Temperature 97.8 F 98.1 F 97.3 F L Pulse Rate 75 69 66 Respiratory Rate 18 20 20 Blood Pressure 136/70 132/78 155/77 H Pulse Oximetry 94 95 09/03/21 04:00 09/03/21 11:15 09/03/21 11:34 Temperature 97.3 F L Pulse Rate 74 85 Respiratory Rate 20 Blood Pressure 133/73 Pulse Oximetry 94 Intake/Output Intake/Output: Intake & Output 08/31/21 09/01/21 09/02/21 09/03/21 23:59 23:59 23:59 23:59 Intake Total 550 2250 1775 350 Output Total 500 200 Balance 550 1750 1575 350 Meds/Results Medications: Active Medications Generic Name Dose Route Start Last Admin Trade Name Freq PRN Reason Stop Dose Admin Acetaminophen 650 mg 08/31/21 23:14 Acetaminophen 325 Mg Tablet PO Q8H P
[2021-09-03 15:52] LABS: NT Pro B Type Natriuretic Pept 548 pg/mL (0-450)
[2021-09-03] MEDS: traZODone HCL 50 MG TABLET PO (20:02)
[2021-09-03] MEDS: REMDESIVIR 100 MG/NS 250 ML 100 MG/250 ML BAG 250 MG IVPB (22:00)
[2021-09-04] VITALS (8 sets, daily range): BP systolic 134–166; BP diastolic 68–96; PULSE 70–88; RESP 16–22; TEMP 35.7–36.6; O2SAT 94–96
[2021-09-04 06:01] LABS: Base Excess ABG 2.2 mmol/L (0-2); HCO3 ABG 25.3 mmol/L (23-29); Oxyhemoglobin 93.6 % (94-100); PCO2 ABG 35.1 mmHg (35-45); PO2 ABG 71.4 mmHg (75-85); Total Hemoglobin 15.2 g/dL (12.0-18.0); pH ABG 7.48 (7.35-7.45)
[2021-09-04 06:26] LABS: Site Drawn RIGHT RADIAL
[2021-09-04 06:27] LABS: Device NASAL CANNULA; Modified Allen's Test Pass
[2021-09-04 06:28] LABS: Alanine Aminotransferase 49 U/L (16-63); Albumin Level 2.4 g/dL (3.4-5.0); Alkaline Phosphatase 54 U/L (46-116); Anion Gap 9 mmol/L (8-16); Aspartate Amino Transferase 29 U/L (15-37); Bilirubin,Total 0.6 mg/dL (0.00-1.00); Blood Urea Nitrogen 23 mg/dL (7-18); Carbon Dioxide 28 mmol/L (21-32); Chloride 101 mmol/L (98-108); Estimated CRCL calculation 79 ml/min; Estimated Glomerular Filt Rate > 60; Glucose 169 mg/dL (70-99); NT Pro B Type Natriuretic Pept 414 pg/mL (0-450); Osmolality Calculated 293 mOsm/kg (285-295); Potassium 4.1 mmol/L (3.5-5.1); Sodium 138 mmol/L (136-145); Total Protein 6.3 g/dL (6.4-8.2)
[2021-09-04 06:37] LABS: Hematocrit 38.3 % (37.0-46.0); Hemoglobin 14.2 g/dL (12.4-15.3); Mean Corpuscular HGB Conc 37.1 g/dL (32.0-36.0); Mean Corpuscular Hemoglobin 35.3 pg (27.0-31.0); Mean Corpuscular Volume 95.3 fL (78.0-102.0); Mean Platelet Volume 10.3 fl (8.7-11.0); Platelet Count Result 335 K/mm3 (150-420); Red Blood Count 4.02 M/mm3 (4.70-6.10); Red Cell Distribution Width 13.2 % (11.6-14.4); White Blood Count 9.6 K/mm3 (4.8-10.8)
[2021-09-04 06:53] LABS: Band Neutrophils Percent 2 % (0-6); Neutrophils Absolute Manual 8.06 K/mm3 (1.3-6.7); Neutrophils Percent Manual 82 % (46-73); Total Cells Counted 100
[2021-09-04 06:54] LABS: Lymphocytes Absolute Manual 0.96 K/mm3 (1.1-4.5); Lymphocytes Percent Manual 10 % (18-44); Monocytes Absolute Manual 0.38 K/mm3 (0.1-0.90); Monocytes Percent Manual 4 % (3-9); Myelocytes Percent 2 %; Platelet Estimate Adequate (Adequate)
[2021-09-04] MEDS: ALBUTEROL SULFATE (*SP) INHALER 4 PUFF INHALATION ×5 (07:29→20:48)
[2021-09-04] MEDS: PRAVASTATIN SODIUM 20 MG TABLET PO (09:22)
[2021-09-04] MEDS: UMECLIDINIUM BROMIDE 62.5 MCG ELLIPTA 1 PUFF INHALATION (09:22)
[2021-09-04] MEDS: lisinopriL 20 MG TABLET PO (09:26)
[2021-09-04] MEDS: SACCHAROMYCES BOULARDII 250 MG CAPSULE PO ×3 (09:26→17:00)
[2021-09-04] MEDS: ENOXAPARIN 30 MG/0.3 ML SYRINGE SUB-Q ×2 (09:26→20:18)
[2021-09-04] MEDS: metFORMIN HCL 500 MG TABLET PO (09:27)
[2021-09-04] MEDS: amLODIPine BESYLATE 5 MG TABLET 10 MG PO (09:27)
[2021-09-04] MEDS: GLIMEPIRIDE 2 MG TABLET PO (09:28)
[2021-09-04] MEDS: BENZONATATE 100 MG CAPSULE 200 MG PO ×3 (09:28→17:01)
[2021-09-04] MEDS: METOPROLOL SUCCINATE EXT REL 50 MG TABCR 100 MG PO (09:28)
[2021-09-04] MEDS: LORATADINE 10 MG TABLET PO (09:28)
[2021-09-04] MEDS: guaiFENesin 12 HR 600 MG TABCR PO ×2 (09:28→20:02)
[2021-09-04] MEDS: DEXAMETHASONE SOD PHOS INJ 4 MG/ML VIAL IV PUSH ×2 (09:29→19:44)
[2021-09-04] MEDS: BARICITINIB 2 MG TABLET 4 MG PO (12:22)
--- NOTE | 2021-09-04 17:23 | PM.IMPN ---
Progress Note: A&P Assessment and Plan (1) Community acquired pneumonia: Qualifiers: Laterality: unspecified laterality Qualified Code(s): J18.9 - Pneumonia, unspecified organism <Doug Haney YASMANI Rm - Last Filed: 09/04/21 17:37> Code(s): J18.9 - Pneumonia, unspecified organism <Doug BoydYASMANI barrera - Last Filed: 09/04/21 17:37> Status: Acute <Doug Haney YASMANI Rm - Last Filed: 09/04/21 17:37> Assessment and Plan: Azithromycin and Rocephin day 3 out of 7 Blood NGTD WBCs and lactic acid within normal limit 09/04/2021 Blood Cx NGTD, continue Ab as noted, Pt is on a venturi-mask <Doug JaimesYASMANI Garcia - Last Filed: 09/04/21 17:37> (2) COVID-19: Code(s): U07.1 - COVID-19 <Doug JaimesYASMANI Garcia - Last Filed: 09/04/21 17:37> Status: Acute <Doug Haney YASMANI Rm - Last Filed: 09/04/21 17:37> Assessment and Plan: Continue remdesivir along with dexamethasone and olumiant Continue guaifenesin, Tessalon Perles, Claritin, inhalers, supplemental Patient has been fully vaccinated Will complete home oxygen evaluation on discharg Repeat blood gas not much change from previous blood gas pH 7.51, PCO2 32.8, PO2 62.6, bicarb 25.4 Repeat chest x-ray and ABG in the a.m. Prone atleast 8 hours Worsening ABG patient placed on Ventimask afterwards ABG improved 09/04/2021 Pt will need another 6 minute walk test and PT evaluation closer to DC, Venturi-mask applied d/t decreased pO2 with this AM labs. <Doug JaimesYASMANI Garcia - Last Filed: 09/04/21 17:37> (3) Elevated brain natriuretic peptide (BNP) level: Code(s): R79.89 - Other specified abnormal findings of blood chemistry <YASMANI Yeh - Last Filed: 09/04/21 17:37> Status: Acute <YASMANI Yeh - Last Filed: 09/04/21 17:37> Assessment and Plan: BNP slightly elevated 779 BNP and echo pending 09/04/2021 Echo scheduled for 09/05/2021, BNP at 414. still with BLE edema <YASMANI Yeh - Last Filed: 09/04/21 17:37> Subjective Date/time seen: 09/04/21 17:23 Pt states he feels great except the fact that he is having difficulty with his breathing. He goes on to explain that his breathing is not worse just that it is not getting any better. He explains about his 6 minute walk test and how he became SOB with this activity. RT and RNs indicated that his O2 requirement during the walk test was 8 L/min. Pt does have a cough and states his chest hurts with coughing. The pain in his chest is reproducible with sternal pressure and axillary chest pressure. Pt has no other concerns at this time. He was a little shaken when he explains that his son called him and stated he did not want his father to . Pt explains that he and his son have had a very good relationship which is ongoing. <YASMANI Yeh - Last Filed: 09/04/21 17:37> Review of Systems Review of Systems: All systems reviewed & are unremarkable except as noted in HPI and below <YASMANI Yeh - Last Filed: 09/04/21 17:37> Exam Const: General: cooperative, healthy appearing, comfortable, no acute distress, well developed, alert, awake and Physically active <YASMANI Yeh - Last Filed: 09/04/21 17:37> Nutritional Appearance: obese <YASMANI Yeh - Last Filed: 09/04/21 17:37> Limitations: other limitations (Decreased SpO2 with activity along with SOB w/ activity) <YASMANI Yeh - Last Filed: 09/04/21 17:37> Resp: Effort & Inspection: normal respiratory effort <YASMANI Yeh - Last Filed: 09/04/21 17:37> Auscultation: rhonchi (clears with cough) <YASMANI Yeh - Last Filed: 09/04/21 17:37> Cardio: Rate: regular rate <YASMANI Yeh - Last Filed: 09/04/21 17:37> Heart sounds: S1 normal heart sound present and S2 normal heart sound present <YASMANI Yeh - Last Filed: 09/04/21 17:37> GI: GI Pa
[2021-09-04] MEDS: traZODone HCL 50 MG TABLET PO (20:19)
[2021-09-04] MEDS: REMDESIVIR 100 MG/NS 250 ML 100 MG/250 ML BAG 250 MG IVPB (21:31)
[2021-09-05] VITALS (13 sets, daily range): BP systolic 114–154; BP diastolic 51–84; PULSE 68–85; RESP 15–20; TEMP 35.7–37; O2SAT 92–98
[2021-09-05 05:49] LABS: Alanine Aminotransferase 52 U/L (16-63); Albumin Level 2.3 g/dL (3.4-5.0); Alkaline Phosphatase 52 U/L (46-116); Anion Gap 9 mmol/L (8-16); Aspartate Amino Transferase 27 U/L (15-37); Bilirubin,Total 0.4 mg/dL (0.00-1.00); Blood Urea Nitrogen 22 mg/dL (7-18); Calcium 8.8 mg/dL (8.5-10.1); Carbon Dioxide 28 mmol/L (21-32); Chloride 99 mmol/L (98-108); Estimated CRCL calculation 84 ml/min; Estimated Glomerular Filt Rate > 60; Glucose 203 mg/dL (70-99); Osmolality Calculated 291 mOsm/kg (285-295); Potassium 4.3 mmol/L (3.5-5.1); Sodium 136 mmol/L (136-145); Total Protein 6.1 g/dL (6.4-8.2)
[2021-09-05 05:57] LABS: Hematocrit 40.8 % (37.0-46.0); Hemoglobin 14.1 g/dL (12.4-15.3); Mean Corpuscular HGB Conc 34.6 g/dL (32.0-36.0); Mean Corpuscular Hemoglobin 31.3 pg (27.0-31.0); Mean Corpuscular Volume 90.7 fL (78.0-102.0); Mean Platelet Volume 10.1 fl (8.7-11.0); Platelet Count Result 331 K/mm3 (150-420); Red Cell Distribution Width 11.9 % (11.6-14.4)
[2021-09-05 06:12] LABS: Band Neutrophils Percent 0 % (0-6); Lymphocytes Absolute Manual 1.35 K/mm3 (1.1-4.5); Lymphocytes Percent Manual 15 % (18-44); Monocytes Absolute Manual 0.45 K/mm3 (0.1-0.90); Monocytes Percent Manual 5 % (3-9); Neutrophils Percent Manual 80 % (46-73); Total Cells Counted 100
[2021-09-05 06:14] LABS: Platelet Estimate Adequate (Adequate)
[2021-09-05] MEDS: ALBUTEROL SULFATE (*SP) INHALER 4 PUFF INHALATION ×4 (07:28→22:25)
[2021-09-05] MEDS: DEXAMETHASONE SOD PHOS INJ 4 MG/ML VIAL IV PUSH ×2 (08:46→22:26)
[2021-09-05] MEDS: lisinopriL 20 MG TABLET PO (08:47)
[2021-09-05] MEDS: guaiFENesin 12 HR 600 MG TABCR PO ×2 (08:47→22:27)
[2021-09-05] MEDS: BENZONATATE 100 MG CAPSULE 200 MG PO ×3 (08:47→16:06)
[2021-09-05] MEDS: METOPROLOL SUCCINATE EXT REL 50 MG TABCR 100 MG PO (08:47)
[2021-09-05] MEDS: ENOXAPARIN 30 MG/0.3 ML SYRINGE SUB-Q ×2 (08:47→22:27)
[2021-09-05] MEDS: PRAVASTATIN SODIUM 20 MG TABLET PO (08:47)
[2021-09-05] MEDS: GLIMEPIRIDE 2 MG TABLET PO (08:47)
[2021-09-05] MEDS: SACCHAROMYCES BOULARDII 250 MG CAPSULE PO ×3 (08:48→16:06)
[2021-09-05] MEDS: LORATADINE 10 MG TABLET PO (08:48)
[2021-09-05] MEDS: amLODIPine BESYLATE 5 MG TABLET 10 MG PO (08:48)
[2021-09-05] MEDS: metFORMIN HCL 500 MG TABLET PO (08:48)
[2021-09-05] MEDS: UMECLIDINIUM BROMIDE 62.5 MCG ELLIPTA 1 PUFF INHALATION (08:49)
[2021-09-05 09:25] LABS: Base Excess ABG 2.9 mmol/L (0-2); HCO3 ABG 26.5 mmol/L (23-29); Modified Allen's Test Pass; Oxygen Content ABG 18.8 %vol (16.0-22.0); Oxygen Saturation ABG 97.4 % (95-97); PCO2 ABG 37.4 mmHg (35-45); PO2 ABG 100.5 mmHg (75-85); Site Drawn RIGHT RADIAL; Total Hemoglobin 13.7 g/dL (12.0-18.0); pH ABG 7.47 (7.35-7.45)
[2021-09-05 09:26] LABS: Device VENTURI MASK
--- NOTE | 2021-09-05 09:30 | ECHO_ITS ---
Patient Info Name: Xander Mckenzie Age: 75 years : 1945 Gender: Male Ht: 75 in Wt: 265 lbs BSA: 2.55 m2 HR: 69 bpm BP: 156 / 99 mmHg Technical Quality: Good Exam Date: 09/05/2021 8:48 AM Exam Location: [facility] Patient Status: Inpatient Admit Date: 08/31/2021 Staff Ordering Physician: Martin Reyes-Chai Process Improvement Engineer: Von Acosta RDCS, RT Attending Provider: Jazmine Brown MD Referring Physician: Eric HUFF; Exam Type: CA echo dop color flow w con Study Info Indications R06.02 - Shortness of breath Complete two-dimensional, color flow and Doppler transthoracic echocardiogram is performed with contrast to opacify the left ventricle and to improve the deliniation of the left ventricle endocardial borders. Summary 1. Left ventricular chamber dimension is normal. 2. Definity contrast administered improved wall motion interpretation. 3. Left ventricular systolic function is normal, estimated at 60-65%. 4. The left ventricular diastolic function is grade I diastolic dysfunction. 5. E/e' 11 is mildly elevated. 6. There is moderate aortic valve sclerosis. 7. There is mild aortic valve stenosis with a peak velocity of 266.58 cm/s, mean gradient of 16 mmHg, and aortic valve area of 1.52 cm2. 8. There is trace aortic valve regurgitation. 9. The mitral valve has mildly calcified annulus. 10. No pulmonary hypertension, estimated pulmonary arterial systolic pressure is 26 mmHg. Left Ventricle E/e' 11 is mildly elevated. Definity contrast administered improved wall motion interpretation. Left ventricular chamber dimension is normal. Left ventricular systolic function is normal, estimated at 60-65%. The left ventricular diastolic function is grade I diastolic dysfunction. Right Ventricle Right ventricular systolic function is normal and with normal TAPSE 1.9 cm. Right ventricular chamber dimension is normal. Left Atria Left atrial chamber dimension is normal. Right Atria Right atrial chamber dimension is normal. Aortic Valve The aortic valve is trileaflet. There is moderate aortic valve sclerosis. There is mild aortic valve stenosis with a peak velocity of 266.58 cm/s, mean gradient of 16 mmHg, and aortic valve area of 1.52 cm2. There is trace aortic valve regurgitation. Pulmonic Valve There is no pulmonic regurgitation. Mitral Valve The mitral valve has mildly calcified annulus. There is no mitral valve stenosis. There is no mitral valve regurgitation. Tricuspid Valve There is no tricuspid valve regurgitation. No pulmonary hypertension, estimated pulmonary arterial systolic pressure is 26 mmHg. Pericardium/Pleural There is no pericardial effusion. Inferior Vena Cava Normal inferior vena cava with >50% collapse upon inspiration consistent with normal right atrial pressure, 5 mmHg. Aorta The aortic root size at the sinus of Valsalva is normal. Left Ventricular Outflow Tract Name Value Normal LVOT 2D LVOT Diameter 2.40 cm LVOT Doppler LVOT Peak Velocity 88.95 cm/s LVOT Peak Gradient 3 mmHg LVOT Mean Gradient
[2021-09-05] MEDS: BARICITINIB 2 MG TABLET 4 MG PO (11:10)
[2021-09-05 13:31] LABS: Base Excess ABG 0.4 mmol/L (0-2); Oxyhemoglobin 95.7 % (94-100); PCO2 ABG 31.7 mmHg (35-45); PO2 ABG 82.6 mmHg (75-85); Total Hemoglobin 15.6 g/dL (12.0-18.0); pH ABG 7.48 (7.35-7.45)
[2021-09-05 13:37] LABS: Device NASAL CANNULA; Modified Allen's Test Pass; Site Drawn RIGHT RADIAL
--- NOTE | 2021-09-05 13:51 | PM.IMPN ---
Progress Note: A&P Assessment and Plan (1) Community acquired pneumonia: Qualifiers: Laterality: unspecified laterality Qualified Code(s): J18.9 - Pneumonia, unspecified organism <Doug Haney YASMANI Rm - Last Filed: 09/05/21 14:02> Code(s): J18.9 - Pneumonia, unspecified organism <Doug Haney YASMANI Rm - Last Filed: 09/05/21 14:02> Status: Acute <Doug Haney YASMANI Rm - Last Filed: 09/05/21 14:02> Assessment and Plan: Azithromycin and Rocephin day 3 out of 7 Blood NGTD WBCs and lactic acid within normal limit 09/04/2021 Blood Cx NGTD, continue Ab as noted, Pt is on a venturi-mask 09/05/2021 Blood Cx continue to have NGTD, Ab day 5, breathing improved per Pt <YASMANI Yeh - Last Filed: 09/05/21 14:02> (2) COVID-19: Code(s): U07.1 - COVID-19 <Doug JaimesYASMANI Garcia - Last Filed: 09/05/21 14:02> Status: Acute <Doug Haney YASMANI Rm - Last Filed: 09/05/21 14:02> Assessment and Plan: Continue remdesivir along with dexamethasone and olumiant Continue guaifenesin, Tessalon Perles, Claritin, inhalers, supplemental Patient has been fully vaccinated Will complete home oxygen evaluation on discharg Repeat blood gas not much change from previous blood gas pH 7.51, PCO2 32.8, PO2 62.6, bicarb 25.4 Repeat chest x-ray and ABG in the a.m. Prone atleast 8 hours Worsening ABG patient placed on Ventimask afterwards ABG improved 09/04/2021 Pt will need another 6 minute walk test and PT evaluation closer to DC, Venturi-mask applied d/t decreased pO2 with this AM labs. 09/05/2021 Currently with NC at 5 L/min, SpO2 94%, breathing improved per Pt <YASMANI Yeh - Last Filed: 09/05/21 14:02> (3) Elevated brain natriuretic peptide (BNP) level: Code(s): R79.89 - Other specified abnormal findings of blood chemistry <Doug Haney YASMANI Rm - Last Filed: 09/05/21 14:02> Status: Acute <Doug BoydYASMANI barrera - Last Filed: 09/05/21 14:02> Assessment and Plan: BNP slightly elevated 779 BNP and echo pending 09/04/2021 Echo scheduled for 09/05/2021, BNP at 414. still with BLE edema 09/05/2021 will monitor Pt, Labs have normalized. <Doug Haney YASMANI Rm - Last Filed: 09/05/21 14:02> Subjective Date/time seen: 09/05/21 13:51 Pt states his breathing feels better today. ABG with NC at 6 L/min have improved. His SpO2 now at >91% but still decreases with ambulation. Otherwise Pt dose not have any complaints or issues at this time. He is looking forward to going home. <Doug Haney YASMANI Rm - Last Filed: 09/05/21 14:02> Review of Systems Review of Systems: All systems reviewed & are unremarkable except as noted in HPI and below <Doug JaimesYASMANI Garcia - Last Filed: 09/05/21 14:02> Exam Const: General: cooperative, healthy appearing, comfortable, no acute distress, well developed, alert, awake and Physically active <YASMANI Yeh - Last Filed: 09/05/21 14:02> Nutritional Appearance: obese <Doug FionaYASMANI Garcia - Last Filed: 09/05/21 14:02> Resp: Effort & Inspection: normal respiratory effort and no cough <YASMANI Yeh - Last Filed: 09/05/21 14:02> Auscultation: clear to auscultation bilaterally <YASMANI Yeh - Last Filed: 09/05/21 14:02> Cardio: Rate: regular rate <YASMANI Yeh - Last Filed: 09/05/21 14:02> Heart sounds: S1 normal heart sound present and S2 normal heart sound present <YASMANI Yeh Last Filed: 09/05/21 14:02> Skin: General skin exam: normal color and dry skin <YASMANI Yeh - Last Filed: 09/05/21 14:02> Neuro: General: oriented to person, oriented to place, oriented to time, moves all extremities, no focal motor deficits and CN's II-XI intact bilaterally (grossly intact) <YASMANI Yeh - Last Filed: 09/05/21 14:02> Gait exam (Neuro): Normal gait present <YASMANI Yeh - Last Filed: 0
[2021-09-05] MEDS: traZODone HCL 50 MG TABLET PO (22:27)
[2021-09-06] VITALS (11 sets, daily range): BP systolic 114–133; BP diastolic 63–98; PULSE 62–86; RESP 15–20; TEMP 36.2–36.8; O2SAT 90–97
--- NOTE | 2021-09-06 02:14 | PC.NURSE ---
Pt rounding complete. Pt had ambulated to the bathroom and emptied his urinal. Pt stated the urine was at the 800 ml line. Pt was educated to call for nurse to empty urinal to appropriately measure for I/O. Pt verbalized understanding, but reinforcement is needed.
--- NOTE | 2021-09-06 05:10 | PC.NURSE ---
[facility] called and asked if pt still needed to be transferred. Updated information given on [facility] and Jim said they didnt have any beds available but would keep the pt on the wait list.
[2021-09-06 05:43] LABS: Hematocrit 40.4 % (37.0-46.0); Hemoglobin 13.8 g/dL (12.4-15.3); Mean Corpuscular HGB Conc 34.2 g/dL (32.0-36.0); Mean Corpuscular Hemoglobin 31.1 pg (27.0-31.0); Platelet Count Result 368 K/mm3 (150-420); Red Blood Count 4.44 M/mm3 (4.70-6.10)
[2021-09-06 05:49] LABS: Alanine Aminotransferase 52 U/L (16-63); Albumin Level 2.3 g/dL (3.4-5.0); Alkaline Phosphatase 51 U/L (46-116); Anion Gap 9 mmol/L (8-16); Aspartate Amino Transferase 25 U/L (15-37); Bilirubin,Total 0.4 mg/dL (0.00-1.00); Blood Urea Nitrogen 26 mg/dL (7-18); Calcium 8.9 mg/dL (8.5-10.1); Carbon Dioxide 26 mmol/L (21-32); Chloride 99 mmol/L (98-108); Estimated CRCL calculation 73 ml/min; Estimated Glomerular Filt Rate > 60; Glucose 232 mg/dL (70-99); Osmolality Calculated 289 mOsm/kg (285-295); Potassium 4.4 mmol/L (3.5-5.1); Sodium 134 mmol/L (136-145)
[2021-09-06 05:55] LABS: Band Neutrophils Percent 0 % (0-6); Basophils Percent Manual 0 % (0-1); Eosinophils Percent Manual 0 % (1-6); Lymphocytes Percent Manual 14 % (18-44); Monocytes Percent Manual 5 % (3-9); Neutrophils Percent Manual 81 % (46-73); Platelet Estimate Adequate (Adequate); Total Cells Counted 100
[2021-09-06] MEDS: ALBUTEROL SULFATE (*SP) INHALER 4 PUFF INHALATION ×3 (06:13→14:54)
[2021-09-06] MEDS: DEXAMETHASONE SOD PHOS INJ 4 MG/ML VIAL IV PUSH (09:11)
[2021-09-06] MEDS: ENOXAPARIN 30 MG/0.3 ML SYRINGE SUB-Q (09:12)
[2021-09-06] MEDS: metFORMIN HCL 500 MG TABLET PO (09:12)
[2021-09-06] MEDS: METOPROLOL SUCCINATE EXT REL 50 MG TABCR 100 MG PO (09:12)
[2021-09-06] MEDS: BENZONATATE 100 MG CAPSULE 200 MG PO ×2 (09:12→13:06)
[2021-09-06] MEDS: guaiFENesin 12 HR 600 MG TABCR PO (09:13)
[2021-09-06] MEDS: lisinopriL 20 MG TABLET PO (09:13)
[2021-09-06] MEDS: LORATADINE 10 MG TABLET PO (09:13)
[2021-09-06] MEDS: GLIMEPIRIDE 2 MG TABLET PO (09:13)
[2021-09-06] MEDS: amLODIPine BESYLATE 5 MG TABLET 10 MG PO (09:13)
[2021-09-06] MEDS: PRAVASTATIN SODIUM 20 MG TABLET PO (09:14)
[2021-09-06] MEDS: UMECLIDINIUM BROMIDE 62.5 MCG ELLIPTA 1 PUFF INHALATION (09:14)
[2021-09-06] MEDS: SACCHAROMYCES BOULARDII 250 MG CAPSULE PO ×2 (09:14→13:06)
[2021-09-06 09:19] LABS: Base Excess ABG 0.4 mmol/L (0-2); HCO3 ABG 23.9 mmol/L (23-29); Oxygen Content ABG 14.7 %vol (16.0-22.0); Oxygen Saturation ABG 98.4 % (95-97); Oxyhemoglobin 97.8 % (94-100); PCO2 ABG 34.3 mmHg (35-45); PO2 ABG 144.6 mmHg (75-85); Total Hemoglobin 10.5 g/dL (12.0-18.0); pH ABG 7.46 (7.35-7.45)
[2021-09-06 09:20] LABS: Device NASAL CANNULA; Modified Allen's Test Pass; Site Drawn RIGHT RADIAL
[2021-09-06] MEDS: BARICITINIB 2 MG TABLET 4 MG PO (11:09)
--- NOTE | 2021-09-06 12:54 | HOMEO2EVAL ---
Evaluation was performed at [facility] Home Oxygen Evaluation RC: Home Oxygen (O2) Evaluation Start: 09/06/21 10:40 Freq: ONCE Status: Active Protocol: RPE Activity Type Activity Date Activity User E-Sign Co-Sign Detail Recorded Client Recorded Date Recorded By Document 09/06/21 11:00 KIMMY [id number] 09/06/21 12:53 KIMMY Document 09/06/21 11:10 KIMMY [id number] 09/06/21 12:53 KIMMY 09/06/21 09/06/21 11:00 11:10 Home O2 Evaluation Test Phase Resting Exercise Oxygen Delivery Room Air Room Air Pulse Oximetry (90-100 %) 95 90 Pulse Rate (60-100 beats/min) 77 86 Activity Tolerance Excellent Rating of Perceived Dyspnea (PD) +1 Mild, Noticeable to the Participant but Not to an Observer Rate of Perceived Exertion (PE) 11 Fairly light Ambulation Distance (feet) 300 Ambulation Distance (meters) 91.43 Home Oxygen Evaluation Comments Patient sitting Patient walked in chair, very 300 feet on talkative, on room air, in room air. will room. begin exerise. Maintained Sp02 90-93%. Treatment Charges O2 Evaluation - Inpatient
--- NOTE | 2021-09-06 14:17 | PM.DS ---
DS: Admitting Diagnosis Discharge Date 09/06/2021 Admitting Diagnosis COVID, Pneumonia DS: Discharge Diagnosis Discharge Diagnosis (1) Community acquired pneumonia: Qualifiers: Laterality: unspecified laterality Qualified Code(s): J18.9 - Pneumonia, unspecified organism Code(s): J18.9 - Pneumonia, unspecified organism Status: Acute Assessment and Plan: Azithromycin and Rocephin day 3 out of 7 Blood NGTD WBCs and lactic acid within normal limit 09/04/2021 Blood Cx NGTD, continue Ab as noted, Pt is on a venturi-mask 09/05/2021 Blood Cx continue to have NGTD, Ab day 5, breathing improved per Pt 09/06/2021 NGTD samples from 08/31/2021, Room air, clear lungs, no elevated WBC, performed 6 minute walk test without need for supplemental oxygen (2) COVID-19: Code(s): U07.1 - COVID-19 Status: Acute Assessment and Plan: Continue remdesivir along with dexamethasone and olumiant Continue guaifenesin, Tessalon Perles, Claritin, inhalers, supplemental Patient has been fully vaccinated Will complete home oxygen evaluation on discharg Repeat blood gas not much change from previous blood gas pH 7.51, PCO2 32.8, PO2 62.6, bicarb 25.4 Repeat chest x-ray and ABG in the a.m. Prone atleast 8 hours Worsening ABG patient placed on Ventimask afterwards ABG improved 09/04/2021 Pt will need another 6 minute walk test and PT evaluation closer to DC, Venturi-mask applied d/t decreased pO2 with this AM labs. 09/05/2021 Currently with NC at 5 L/min, SpO2 94%, breathing improved per Pt 09/06/2021 performed 6 minute walk test without need for supplemental oxygen, will DC with Decadron to complete course and Baricitinib as well. (3) Elevated brain natriuretic peptide (BNP) level: Code(s): R79.89 - Other specified abnormal findings of blood chemistry Status: Acute Assessment and Plan: BNP slightly elevated 779 BNP and echo pending 09/04/2021 Echo scheduled for 09/05/2021, BNP at 414. still with BLE edema 09/05/2021 will monitor Pt, Labs have normalized. 09/06/2021 Pt on room air after 6 minute walk test. DS: Summary Hospital Course Hospital Course: Pt did well recovering from his SOB related to COVID. Pt to be DC'ed with medications. Time Spent with Patient Time attestation: Total time spent providing and/or coordinating discharge services: < 30 Minutes Exam Const: General: cooperative, healthy appearing, comfortable, no acute distress, well developed, alert, awake and Physically active Nutritional Appearance: obese Resp: Effort & Inspection: normal respiratory effort Auscultation: clear to auscultation bilaterally Cardio: Rate: regular rate Heart sounds: S1 normal heart sound present and S2 normal heart sound present Skin: General skin exam: normal color and dry skin Neuro: General: oriented to person, oriented to place and oriented to time Cranial nerves: Yes CN's II-XII intact bilaterally (grossly intact) Speech: normal speech Gait exam (Neuro): Normal gait present Motor exam (neuro): 5/5 motor strength present throughout Extrem: General: no pedal edema and no calf tenderness Psych: Appearance: grossly normal Mental Status: mental status grossly normal Speech and movement: Normal speech and movement present Affect: normal affect Attitude: cooperative Thought process: Normal thought process present DS: Data Data Completed and Pending Labs on day of discharge: Labs from last 24 hours 09/06/21 09/06/21 09/06/21 08:32 05:03 05:03 WBC 10.0 RBC 4.44 L Hgb 13.8 Hct 40.4 MCV 91.0 MCH 31.1 H MCHC 34.2 RDW 12.0 Plt Count 368 MPV 10.0 Immature Gran % (Auto) Not Reportable Neut % (Auto) Not Reportable Lymph % (Auto) Not Reportable Kleberg % (Auto) Not Reportable Eos % (Auto) Not Reportable Baso % (Auto) Not Reportable Lymph # (Auto) Not Reportable Kleberg # (Auto) Not Reportable Eos # (Auto) Not Repor
--- NOTE | 2021-09-06 15:50 | PC.NURSE ---
Patient being discharged home. IV site removed, tip intact, dressing applied to site. All belongings gathered together to be sent home with patient, inhalers sent home with patient. All discharge instructions and education reviewed with patient. Patient states understanding. Patient accompanied to front door via wheelchair by this nurse. Left via private vehicle with . Denies any questions at discharge.
--- NOTE | 2021-09-10 10:39 | PC.NURSE ---
Unable to contact.
== END 2021-09-06 15:50 | disposition home or self-care (01) | DRG 177 ==
LOC: CHSED 17:44 → CHS2ND 23:57
PROVIDERS: Nurse Practitioner; Nurse Practitioner Family; Admitting Provider Emergency Medicine; Emergency Provider Emergency Medicine; PCP Nurse Practitioner; Visit Provider Emergency Medicine
DX: U07.1 COVID-19 (principal); J18.9 Pneumonia, unspecified organism; J12.82 Pneumonia due to coronavirus disease 2019; R79.89 Other specified abnormal findings of blood chemistry
CPT/HCPCS: 36415; 36600; 71045; 71250; 71275; 80053; 81001; 82805; 83605; 83735; 83880; 84450; 84460; 84484; 85025; 85380; 85610; 87040; 87426; 93005; 94618; 94640; 96365; 96375; 97161; 99285; A9270; C8929; C9803; J0456; J0696; J1100; J1650; J1940; J7040; Q9967

== ENCOUNTER 2021-09-18 08:04 | Outpatient (CLI) | payer MEDICARE, SELFPAY ==
[2021-09-18 08:19] LABS: Basophils Absolute Auto 0.04 K/mm3 (0.00-0.10); Basophils Percent Auto 0.4 % (0.0-1.0); Eosinophils Absolute Auto 0.33 K/mm3 (0.02-0.50); Eosinophils Percent Auto 3.7 % (1.0-6.0); Hematocrit 43.5 % (37.0-46.0); Immature Granulocyte Absolute 0.12 K/mm3 (0.00-0.00); Immature Granulocyte Percent A 1.3 % (0.0-0.0); Lymphocytes Absolute Auto 2.26 K/mm3 (1.10-4.50); Lymphocytes Percent Auto 25.2 % (18.0-42.0); Mean Corpuscular HGB Conc 34.5 g/dL (32.0-36.0); Mean Corpuscular Hemoglobin 31.5 pg (27.0-31.0); Mean Corpuscular Volume 91.4 fL (78.0-102.0); Mean Platelet Volume 9.8 fl (8.7-11.0); Monocytes Absolute Auto 0.96 K/mm3 (0.10-0.90); Monocytes Percent Auto 10.7 % (2.0-11.0); Neutrophils Absolute Auto 5.3 K/mm3 (1.7-7.2); Neutrophils Percent Auto 58.7 % (50.0-70.0); Platelet Count Result 216 K/mm3 (150-420); Red Blood Count 4.76 M/mm3 (4.70-6.10); Red Cell Distribution Width 12.4 % (11.6-14.4)
== END 2021-09-18 08:05 | disposition home or self-care (01) ==
LOC: CHSLAB 08:08
PROVIDERS: PCP Family Medicine; Visit Provider Nurse Practitioner
DX: U07.1 COVID-19 (principal); J12.82 Pneumonia due to coronavirus disease 2019
CPT/HCPCS: 36415; 85025

== ENCOUNTER 2021-12-20 14:24 | Outpatient (CLI) | payer MEDICARE, SELFPAY ==
--- NOTE | ~2021-12-20 | US_ITS ---
EXAMINATION: US thyroid DATE: 12/20/2021 14:57 INDICATION: Thyroid nodule. TECHNIQUE: Multiple ultrasound images of the thyroid were obtained. COMPARISON: None. FINDINGS: The right thyroid lobe measures 4.6 x 2.8 x 2.9 cm. The left thyroid lobe measures 4.0 x 1.9 x 1.5 c m. In the right thyroid lobe, there is a 3.4 cm solid, isoechoic, oktmm-tfej-baat nodule with smooth margin without echogenic foci (TI-RADS TR3). In the right thyroid lobe, there is a 10 mm solid, hype rechoic, acmed-rykp-hpfh nodule with smooth margin without echogenic foci (TR3). In the left thyroid lobe, there is a 10 mm solid, very hypoechoic, hswmn-ltzi-jddx nodule with smooth margin without echo genic foci (TR4). IMPRESSION: 1. Thyroid nodules. Ultrasound-guided fine-needle aspiration of the 3.4 cm right thyroid nodule is re commended. Reviewed, dictated and finalized at location A. IMPRESSION: 1. Thyroid nodules. Ultrasound-guided fine-needle aspiration of the 3.4 cm righ t thyroid nodule is recommended.
== END 2021-12-20 14:25 | disposition home or self-care (01) ==
LOC: CHSIMG 14:25
PROVIDERS: PCP Nurse Practitioner; Visit Provider Nurse Practitioner
DX: E04.1 Nontoxic single thyroid nodule (principal)
CPT/HCPCS: 76536

== ENCOUNTER 2022-01-01 12:30 | Outpatient (CLI) | payer MEDICARE, SELFPAY ==
--- NOTE | ~2022-01-01 | US_ITS ---
EXAMINATION: US FNA w image guidance DATE: 01/01/2022 13:33 INDICATION: Right thyroid mass TECHNIQUE: A time-out was performed to verify the patient's name, date of , and procedure to be performed . The procedure and its benefits and risks were discussed with the patient. Risks specifically discus sed included bleeding and infection. The patient understood the risks and agreed to proceed. The neck was prepped and draped in the usual sterile manner. 3 mL 1% lidocaine was used for local anesthesia . 6 passes were made with a 25G needle into the lesion. Appropriate needle location was documented with continuous sonographic guidance. The specimens were passed to the interventional technologist in the room. A sterile bandage was applied. There were no immediate complications. FINDINGS: Grayscale ultrasound images demonstrate biopsy needles advanced into a solid 3.9 cm TI RADS 4 right t hyroid nodule. IMPRESSION: 1. Successful ultrasound-guided fine needle aspiration of a 3.9 cm TI RADS 4 right thyroid nodule. Reviewed, dictated and finalized at location A. IMPRESSION: 1. Successful ultrasound-guided fine needle aspiration of a 3.9 cm TI RADS 4 r ight thyroid nodule.
== END 2022-01-01 12:31 | disposition home or self-care (01) ==
LOC: ANHIMG 12:32
PROVIDERS: PCP Family Medicine; Visit Provider Nurse Practitioner
DX: E04.1 Nontoxic single thyroid nodule (principal)
CPT/HCPCS: 10005; 88173; 88305

== ENCOUNTER 2022-04-19 16:58 | Outpatient (CLI) | payer MEDICARE, SELFPAY ==
--- NOTE | ~2022-04-19 | XR_ITS ---
XR hip RT 1V DATE: 04/19/2022 17:35 INDICATION: Fall one week ago. Right leg pain. TECHNIQUE: AP view only COMPARISON: None FINDINGS: No fracture or dislocation, avascular necrosis or bone destruction of the right hip is evid ent. 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 Prominent arterial calcification is noted. IMPRESSION: Mild osteoarthritis. Reviewed, dictated and finalized at location B. IMPRESSION: Mild osteoarthritis.
--- NOTE | ~2022-04-19 | XR_ITS ---
XR knee RT 3V DATE: 04/19/2022 17:36 INDICATION: Fall one week ago. Right leg pain. TECHNIQUE: 3 views of right knee COMPARISON: None FINDINGS: Status post right total knee arthroplasty with patellar resurfacing. No fracture or dislocation or joint effusion is detected. There is osteopenia. Prominent femoral, popliteal and trifurcation artery calcification. IMPRESSION: Status post right total knee arthroplasty Osteopenia No fracture or dislocation Extensive arterial calcification Reviewed, dictated and finalized at location B.
--- NOTE | ~2022-04-19 | XR_ITS ---
XR ankle RT min 3V DATE: 04/19/2022 17:36 INDICATION: Fall one week ago. Right leg pain. TECHNIQUE: 4 views COMPARISON: None FINDINGS: There is generalized soft tissue swelling of the ankle. There is extensive calcification of the anterior and posterior tibial and dorsalis pedis and metatarsal arteries, suggesting diabetes. No fracture or dislocation of the ankle or disruption of the ankle mortise is detected. No periosteal reaction or bone destruction. There is mild plantar and posterior calcaneal enthesopathy. IMPRESSION: Extensive arterial calcification, suggesting diabetes Plantar and posterior calcaneal enthesopathy Soft tissue swelling. Reviewed, dictated and finalized at location B.
== END 2022-04-19 16:59 | disposition home or self-care (01) ==
LOC: CHSIMG 17:06
PROVIDERS: PCP Family Medicine; Visit Provider Nurse Practitioner
DX: M79.604 Pain in right leg (principal)
CPT/HCPCS: 73501; 73562; 73610

== ENCOUNTER 2022-04-20 11:12 | Outpatient (CLI) | payer MEDICARE, SELFPAY ==
--- NOTE | ~2022-04-20 | XR_ITS ---
EXAMINATION: XR tibia fibula RT 2V DATE: 04/20/2022 11:41 INDICATION: Right lower leg pain. TECHNIQUE: 2 views of right tibia and fibula on 4 radiographs were obtained. COMPARISON: Right knee radiographs 04/19/2022 FINDINGS: There is a total right knee arthroplasty with patellar resurfacing in near-anatomic alignme nt. No fracture. No periprosthetic lucency to suggest loosening or infection. There is mild ankle shant nt osteoarthritis. There are enthesophytes at the posterior and plantar aspects of calcaneal tuberosi ty. Vascular calcifications are noted. Soft tissue calcifications are noted. IMPRESSION: 1. Total right knee arthroplasty in near-anatomic alignment. 2. Mild right ankle osteoarthritis. Reviewed, dictated and finalized at location A.
== END 2022-04-20 11:13 | disposition home or self-care (01) ==
LOC: CHSIMG 11:14
PROVIDERS: PCP Physician Assistant; Visit Provider Physician Assistant
DX: M79.661 Pain in right lower leg (principal)
CPT/HCPCS: 73590

== ENCOUNTER 2022-04-30 13:52 | Outpatient (CLI) | payer MEDICARE, SELFPAY ==
--- NOTE | ~2022-04-30 | US_ITS ---
EXAMINATION: US venous doppler LE RT DATE: 04/30/2022 14:35 INDICATION: Right lower limb pain and swelling. TECHNIQUE: Grayscale ultrasound images without and with compression and Doppler ultrasound images of the right lower extremity veins were obtained. COMPARISON: None. FINDINGS: The visualized portions of right common femoral vein, profunda (deep) femoral vein, femoral vein, pop liteal vein, peroneal veins, posterior tibial veins, and greater saphenous vein outflow are patent. IMPRESSION: 1. No deep venous thrombosis. Reviewed, dictated and finalized at location A.
== END 2022-04-30 13:53 | disposition home or self-care (01) ==
LOC: CHSIMG 13:56
PROVIDERS: PCP Family Medicine; Visit Provider Nurse Practitioner
DX: M79.661 Pain in right lower leg (principal)
CPT/HCPCS: 93971

== ENCOUNTER 2022-08-09 17:21 | Emergency (ER) | payer MEDICARE, SELFPAY ==
[2022-08-09] VITALS (10 sets, daily range): BP systolic 167–187; BP diastolic 72–109; PULSE 73–99; RESP 17–30; TEMP 36.5–37.1; O2SAT 86–100
--- NOTE | ~2022-08-09 | CT_ITS ---
EXAMINATION: CT brain wo con DATE: 08/09/2022 18:42 INDICATION: Fall. Patient on anticoagulant therapy. TECHNIQUE: Computed tomography (CT) of the head was performed without intravenous contrast. The mA wa s adjusted according to patient size. Iterative reconstruction technique was employed. Exam dose: 68 1.00 mGy-cm total exam DLP. COMPARISON: None FINDINGS: Prominent bilateral vertebral artery and carotid siphon internal carotid artery calcificati ons as well as basilar artery calcification. There is nonspecific diminished attenuation of the cereb ral white matter, likely due to chronic small vessel ischemic changes. No intracranial mass lesion or hemorrhage or cerebrovascular accident. No midline shift or mass effec t. No subdural or epidural hematoma. Moderate cerebral and cerebellar volume loss. No fracture or bone destruction of the cranial vault. The mastoid air cells and included paranasal sinuses are normally developed and aerated. IMPRESSION: Cerebral atherosclerosis and chronic small vessel ischemic changes of the cerebral white matter No acute intracranial finding or skull fracture Reviewed, dictated and finalized at [facility]. Reviewed, dictated and finalized at location A. RRAL SPECIALIST
--- NOTE | ~2022-08-09 | XR_ITS ---
XR shoulder LT min 2V DATE: 08/09/2022 18:31 INDICATION: Postoperative reduction examination TECHNIQUE: Postreduction AP and Neer views COMPARISON: 08/09/2022 prereduction left shoulder FINDINGS: There is reduction of the anterior glenohumeral dislocation. There is rotator cuff atrophy. No fracture is evident. There is normal alignment and mild degenerative change at the left acromiocla vicular joint. Diffuse osteopenia. IMPRESSION: Reduction of anterior glenohumeral dislocation Reviewed, dictated and finalized at location A. T PATROL INSPECTOR
--- NOTE | ~2022-08-09 | XR_ITS ---
XR shoulder LT min 2V DATE: 08/09/2022 17:49 INDICATION: Fall, left shoulder injury and pain TECHNIQUE: 3 views COMPARISON: 10/17/2021 left shoulder FINDINGS: There is anterior glenohumeral dislocation. No fracture is detected. Diffuse osteopenia. Normal alignment at the acromioclavicular joint. IMPRESSION: Left anterior glenohumeral dislocation Osteopenia based Reviewed, dictated and finalized at location A. HANGER
--- NOTE | 2022-08-09 17:27 | ED.FALL ---
HPI - Fall General Chief Complaint: Extremity Injury, Upper Stated Complaint: left shoulder injury Time Seen by Provider: 08/09/22 17:27 Source: patient and RN notes reviewed Mode of arrival: ambulatory Limitations: no limitations History of Present Illness HPI Narrative: Patient was outside checking the hoses to make sure they had been disconnected from this spicket. he slipped in the snow on the ice onto his left side injuring his left shoulder hitting his head on the ground. He had no loss of consciousness. He is in extreme pain from his left shoulder. He otherwise is alert and oriented. He has a small abrasion on his left forehead. complaint: fall Onset (ago): minute(s) (30) Fall from: standing Fall witnessed: no Place fall occurred: home Loss of consciousness: none Prolonged down time: no Symptoms prior to fall: none Context: tripped/slipped (on the ice) Location of injury: head Location of injury - extremities: Left: shoulder Severity: severe Quality: sharp, aching and throbbing Associated symptoms (after fall): denies Related Data Home Medications Medication Instructions Recorded Confirmed amlodipine 10 mg tablet 10 mg PO DAILY 08/31/21 08/09/22 lisinopril 20 mg tablet 20 mg PO DAILY 08/31/21 08/09/22 metformin 500 mg tablet 1,000 mg PO DAILY 08/31/21 08/09/22 pravastatin 20 mg tablet 20 mg PO DAILY 08/31/21 08/09/22 Allergies Allergy/AdvReac Type Severity Reaction Status Date / Time No Known Allergies Allergy Unknown Verified 10/17/21 12:08 Review of Systems Review of Systems: All systems reviewed & are unremarkable except as noted in HPI and below [facility] Past Medical History Medical History Arthritis of shoulder region, 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 CAD (coronary artery disease) (02/29/16) Community acquired pneumonia Edema (02/29/16) Encounter for screening for malignant neoplasm of prostate Essential (primary) hypertension Labral tear of long head of left biceps tendon Primary osteoarthritis of left knee Pure hypercholesterolemia Rotator cuff tear, left Sleep apnea, unspecified Subacromial impingement of left shoulder Type 2 diabetes mellitus without complications Weakness of both lower extremities Surgical History Surgical History History of knee replacement procedure of right knee Family History Family History Father Patient's father is Social History Social History Smoking status: Former smoker Second hand tobacco smoke exposure: No Smoking end date: 08/18/71 Alcohol intake: never Substance use: never Substance use type: does not use Spiritual care concerns: No Exam Const: General: healthy appearing, no acute distress and ill appearing acutely ( appears in pain) Nutritional Appearance: well nourished and obese Orientation/consciousness: patient oriented x3 Limitations: physical limitations HENMT: Head: abrasion left temporal Ears: external ears normal and TM's normal bilaterally Face and sinus: normal facial exam Mouth: Yes Normal oral and palatal mucosa present Teeth and gingiva: dentition normal Eyes: Conjunctivae: conjunctivae normal Pupils: Equal, round and reactive pupils present EOM: EOMs intact bilaterally Neck: Neck: normal visual inspection Resp: Effort & Inspection: normal respiratory effort Auscultation: clear to auscultation bilaterally Cardio: Rate: regular rate Rhythm: regular rhythm GI: GI Palp: Yes Soft to palpation and No Tenderness to palpation present (GI) Auscultation: normal bowel sounds Back/Spine/Pelvis: Cervical Spine: cervical ROM normal Thoracic/Lumbar Spine: thoraco-lumbar ROM normal Neuro: General: patient oriented x3, moves all extremit
[2022-08-09] MEDS: HYDROmorphone HCL INJ (*CRX) 2 MG/ML VIAL 1 MG IV PUSH (17:57)
[2022-08-09] MEDS: MIDAZOLAM HCL (*CRX) 2 MG/2 ML VIAL IV PUSH (18:08)
[2022-08-09] MEDS: ETOMIDATE 20 MG/10 ML AMPUL 10 MG IV PUSH (18:11)
[2022-08-09] MEDS: ETOMIDATE 20 MG/10 ML AMPUL 15 MG IV PUSH (18:15)
--- NOTE | 2022-08-09 19:16 | NBADM ---
pt to xray for head ct with RN at 1836. 1838 pt alert and oriented, assisted to ct table with RN and xray staff. 1845 return to room #7, pt alert and oriented x4, awaiting ct results, call rosa in reach and at bedside 1850 pt resting eyes closed, responds when spoken to. 191 pt alert and oriented. talking with . 1920 dr mcgill in with pt. pt remains alert . sling in place to left arm.
--- NOTE | 2022-08-09 19:56 | PC.NURSE ---
1800 er sedation record, procedure explained per dr mcgill. pt and voiced understanding. 180 consent signed. present for procedure, dr mcgill, kriss rn, mimi rn, chung tech. 180 procedure start time 180 reduction of left shoulder completed at 1820
== END 2022-08-09 19:38 | disposition home or self-care (01) ==
PROVIDERS: Emergency Provider Emergency Medicine; PCP Family Medicine
DX: S43.005A Unspecified dislocation of left shoulder joint, initial encounter (principal); S00.03XA Contusion of scalp, initial encounter; S00.01XA Abrasion of scalp, initial encounter; I25.10 Atherosclerotic heart disease of native coronary artery without angina pectoris; I10 Essential (primary) hypertension; E11.9 Type 2 diabetes mellitus without complications; Z79.84 Long term (current) use of oral hypoglycemic drugs; Z87.891 Personal history of nicotine dependence; W00.0XXA Fall on same level due to ice and snow, initial encounter
CPT/HCPCS: 23650; 70450; 73030; 96374; 99285; A4565; J1170; J2250

== ENCOUNTER 2022-08-30 08:50 | Outpatient (CLI) | payer MEDICARE, SELFPAY ==
--- NOTE | ~2022-08-30 | XR_ITS ---
EXAMINATION: XR shoulder LT min 2V INDICATION: Left shoulder pain TECHNIQUE: Four views of the left shoulder are submitted. COMPARISON: 08/09/2022 FINDINGS: Normal alignment. No fracture. There is mild osteoarthritis of the glenohumeral and acromio clavicular joints. Soft tissues are unremarkable. IMPRESSION: 1. Osteoarthritis without acute osseous abnormality. Reviewed, dictated and finalized at location B. S AND CUSTOMER RELATIONS REP
== END 2022-08-30 08:51 | disposition home or self-care (01) ==
LOC: CHSIMG 09:04
PROVIDERS: PCP Family Medicine; Visit Provider Nurse Practitioner
DX: S43.005A Unspecified dislocation of left shoulder joint, initial encounter (principal); M19.012 Primary osteoarthritis, left shoulder
CPT/HCPCS: 73030

== ENCOUNTER 2022-09-16 09:10 | Outpatient (RCR) | payer MEDICARE, SELFPAY ==
--- NOTE | 2022-09-16 07:59 | PTOPEVAL1 ---
Assessment and note entered by Aakash Avelar Evaluation Information Assessment Status Evaluation Diagnosis left shoulder dislocation Onset 08/10/22 Subjective Information Pt. reports that he got his foot caught in an extension cord and fell dislocating the left shoulder. He reports that he has difficulty with lifting the left arm overhead. He states that he is right hand dominant. He states that pain is constant. He states that pain does increase at night making sleep difficult. He reports that he had no complication with his shoulder before his fall and was completing all IADL's without complication. He reports that his goal is to decrease pain and improve left shoulder mobility. Reported Pain Level Pain Score 4: Self Report Assessment PT Clinical Summary Pt. is a 76 year old male who enters the clinic approximately 1 month post left shoulder dislocation. He presents with indications of rotator cuff syndrome on the left on this date. Pt. currently presents with pain, impaired left shoulder ROM, and impaired left shoulder strength. Continued treatment is indicated in order to improve these areas to allow the pt. to be able to complete all IADL's without complication. Plan of Care Interventions Electrical Stimulation,Hot Pack/Cold Pack,Manual Therapy,Therapeutic Activities,Therapeutic Exercise,Self-Care/Home Management PT Services Indicated Yes Treatment Frequency and 3x/week x 12 visits Duration These treatments will address the objective and functional deficits as defined above. The patient will be advanced safely and appropriately in order for the patient to progress towards his/her prior level of function. Additional exercises will be introduced and as well as a comprehensive home exercise program upon discharge, if needed, ?to ensure carryover of functional gains achieved in the clinic. This treatment plan has been reviewed and agreement upon by the patient.
--- NOTE | 2022-10-02 07:55 | PTOPEVAL1 ---
Assessment and note entered by Aakash Avelar Evaluation Information Assessment Status Progress Diagnosis left shoulder dislocation Onset 08/10/22 Subjective Information Pt. reports that pain is less intense. He notices he can reach overhead further and is sleeping better at night. Reported Pain Level Pain Score 2: Self Report Assessment PT Clinical Summary Pt. has attended a total of 8 treatment sessions. In this time he has demonstrated excellent progress towards all goals. He continues to present with weakness with overhead activities. Continued skilled PT per POC is recommended focusing on improving strength, especially with overhead activities. Plan of Care Interventions Electrical Stimulation,Hot Pack/Cold Pack,Manual Therapy,Therapeutic Activities,Therapeutic Exercise PT Services Indicated Yes Treatment Frequency and 3x/week x 4 visits Duration These treatments will address the objective and functional deficits as defined above. The patient will be advanced safely and appropriately in order for the patient to progress towards his/her prior level of function. Additional exercises will be introduced and as well as a comprehensive home exercise program upon discharge, if needed, ?to ensure carryover of functional gains achieved in the clinic. This treatment plan has been reviewed and agreement upon by the patient.
--- NOTE | 2022-10-11 07:59 | PTOPREEVAL ---
Assessment and note entered by Anna Michelle DPT Evaluation Information Assessment Status Re-evaluation Diagnosis left shoulder dislocation Onset 08/10/22 Subjective Information Patient reports that shoulder is continuing to improve. He reports that he is able to sleep through the night with no disturbance due to pain. He reports that reaching up to cabinets has improved but he continues to have difficulty with lifting any objects. 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 He believes he could benefit from continued skilled PT. Reported Pain Level Pain Score 1: Self Report Assessment PT Clinical Summary Patient kinsey been seen for 12 visits from 09/16/22- with improvements seen in strength and ROM. He reports that he has improved sleep and function around the home. He has not been able to do heavy activity or lifting of any weight due to weakness at the L shoulder. He continues to benefit from skilled PT to address remaining impairments and return to PLOF. Plan of Care Interventions Electrical Stimulation,Hot Pack/Cold Pack,Manual Therapy,Neuro Re-education,Patient/Caregiver Educati,Therapeutic Activities,Therapeutic Exercise,Self-Care/Home Management PT Services Indicated Yes Treatment Frequency and 2x weekly for 10 visits Duration These treatments will address the objective and functional deficits as defined above. The patient will be advanced safely and appropriately in order for the patient to progress towards his/her prior level of function. Additional exercises will be introduced and as well as a comprehensive home exercise program upon discharge, if needed, ?to ensure carryover of functional gains achieved in the clinic. This treatment plan has been reviewed and agreement upon by the patient.
--- NOTE | 2022-11-15 08:41 | PTOPDC ---
Assessment and note entered by JT File, PT Evaluation Information Assessment Status Discharge Diagnosis left shoulder dislocation Onset 08/10/22 Subjective Information patient reports he continues to have difficulty lifting and reaching overhead. he reports the shoulder continues to feel weak and he is worried about being able to pull up in his truck and reach for things out the window of the truck. Reported Pain Level Pain Score 0: Self Report Assessment PT Clinical Summary mr. zuniga presents to skilled PT today for his nd skilled therapy visit. he presents with decreased pain overall in the L shoulder, but continues to display decreased rom and weakness. he has met only his goal for HEP performance thus far. today he was educated in an HEP for independent progression of exercises for shoulder rom and strength at home. he was educated to follow up with MD in 1 month to have MRI done if the shoulder continues to limit his function. he will DC skilled PT as of today. Plan of Care Interventions Electrical Stimulation,Hot Pack/Cold Pack,Manual Therapy,Neuro Re-education,Patient/Caregiver Educati,Therapeutic Activities,Therapeutic Exercise,Self-Care/Home Management PT Services Indicated Yes Treatment Frequency and DC to independent HEP Duration
== END 2022-11-15 09:10 | disposition home or self-care (01) ==
LOC: CHSPT 09:10
PROVIDERS: Visit Provider Orthopaedic Surgery
DX: S43.006D Unspecified dislocation of unspecified shoulder joint, subsequent encounter (principal)
CPT/HCPCS: 97014; 97110; 97140; 97161; G0283

== ENCOUNTER 2022-12-21 08:45 | Outpatient (CLI) | payer MEDICARE, SELFPAY ==
[2022-12-21 09:08] LABS: Basophils Absolute Auto 0.06 K/mm3 (0.00-0.10); Basophils Percent Auto 0.9 % (0.0-1.0); Eosinophils Absolute Auto 0.37 K/mm3 (0.02-0.50); Eosinophils Percent Auto 5.5 % (1.0-6.0); Hematocrit 43.5 % (37.0-46.0); Hemoglobin 14.6 g/dL (12.4-15.3); Immature Granulocyte Absolute 0.06 K/mm3 (0.00-0.00); Immature Granulocyte Percent A 0.9 % (0.0-0.0); Lymphocytes Absolute Auto 2.25 K/mm3 (1.10-4.50); Lymphocytes Percent Auto 33.5 % (18.0-42.0); Mean Corpuscular HGB Conc 33.6 g/dL (32.0-36.0); Mean Corpuscular Hemoglobin 31.5 pg (27.0-31.0); Mean Platelet Volume 9.8 fl (8.7-11.0); Monocytes Percent Auto 10.4 % (2.0-11.0); Neutrophils Absolute Auto 3.3 K/mm3 (1.7-7.2); Neutrophils Percent Auto 48.8 % (50.0-70.0); Platelet Count Result 192 K/mm3 (150-420); Red Blood Count 4.63 M/mm3 (4.70-6.10); Red Cell Distribution Width 12.2 % (11.6-14.4); White Blood Count 6.7 K/mm3 (4.8-10.8)
[2022-12-21 09:16] LABS: Creatinine Urine 131.68 mg/dL (40-278); MALB Creatinine Ratio 19.2 mg/g (0-30); Microalbumin Urine Random 25.4 mg/L
[2022-12-21 09:18] LABS: Hemoglobin A1C 8.7 % (<5.7)
[2022-12-21 09:29] LABS: Alanine Aminotransferase 27 U/L (16-63); Albumin Level 3.4 g/dL (3.4-5.0); Alkaline Phosphatase 56 U/L (46-116); Anion Gap 9 mmol/L (8-16); Aspartate Amino Transferase 14 U/L (15-37); Bilirubin,Total 0.9 mg/dL (0.00-1.00); Blood Urea Nitrogen 23 mg/dL (7-18); Carbon Dioxide 30 mmol/L (21-32); Chloride 103 mmol/L (98-108); Cholesterol 168 mg/dL (0-200); Estimated Glomerular Filt Rate > 60; Glucose 167 mg/dL (70-99); HDL Direct 42 mg/dL (40-60); LDL Cholesterol Calculated 105 mg/dL (<130); Osmolality Calculated 301 mOsm/kg (285-295); Potassium 4.9 mmol/L (3.5-5.1); Sodium 142 mmol/L (136-145); Total Protein 6.3 g/dL (6.4-8.2); Triglycerides 104 mg/dL (0-150)
== END 2022-12-21 08:46 | disposition home or self-care (01) ==
PROVIDERS: PCP Nurse Practitioner; Visit Provider Nurse Practitioner
DX: E11.9 Type 2 diabetes mellitus without complications (principal); E78.2 Mixed hyperlipidemia; I10 Essential (primary) hypertension
CPT/HCPCS: 36415; 80053; 80061; 82043; 83036; 85025

== ENCOUNTER 2023-05-05 07:54 | Outpatient (CLI) | payer MEDICARE, SELFPAY ==
--- NOTE | ~2023-05-05 | US_ITS ---
Thyroid ultrasound. Clinical History: Thyroid nodule COMPARISON: 12/20/2021 Findings: Real-time sonography of the thyroid gland was performed. The right lobe measures 5.1 x 3.0 x 2.9 cm. The left lobe measures 4.3 x 1.8 x 1.9 cm. The isthmus is 6 mm in AP diameter. At the right lower pole, there is a 3.9 x 2.4 x 2.4 cm solid, mildly heterogeneous, mildly hypoechoic nodule. At the left lower pole, there is a 1.2 cm hypoechoic, possibly partially cystic nodule. Impression: Bilateral thyroid nodules, as detailed above, similar to prior exam.. Reviewed, dictated and finalized at location . Impression: Bilateral thyroid nodules, as detailed above, similar to prior exam..
[2023-05-05 08:44] LABS: Basophils Absolute Auto 0.05 K/mm3 (0.00-0.10); Basophils Percent Auto 0.9 % (0.0-1.0); Eosinophils Absolute Auto 0.22 K/mm3 (0.02-0.50); Eosinophils Percent Auto 3.9 % (1.0-6.0); Hematocrit 43.6 % (37.0-46.0); Hemoglobin 14.7 g/dL (12.4-15.3); Immature Granulocyte Absolute 0.03 K/mm3 (0.00-0.00); Immature Granulocyte Percent A 0.5 % (0.0-0.0); Lymphocytes Absolute Auto 1.94 K/mm3 (1.10-4.50); Lymphocytes Percent Auto 34.3 % (18.0-42.0); Mean Corpuscular HGB Conc 33.7 g/dL (32.0-36.0); Mean Corpuscular Hemoglobin 31.7 pg (27.0-31.0); Mean Corpuscular Volume 94.2 fL (78.0-102.0); Monocytes Absolute Auto 0.59 K/mm3 (0.10-0.90); Monocytes Percent Auto 10.4 % (2.0-11.0); Neutrophils Absolute Auto 2.8 K/mm3 (1.7-7.2); Platelet Count Result 189 K/mm3 (150-420); Red Blood Count 4.63 M/mm3 (4.70-6.10); Red Cell Distribution Width 12.3 % (11.6-14.4); White Blood Count 5.7 K/mm3 (4.8-10.8)
[2023-05-05 08:53] LABS: Hemoglobin A1C 6.9 % (<5.7)
[2023-05-05 09:40] LABS: Alanine Aminotransferase 20 U/L (16-63); Albumin Level 3.4 g/dL (3.4-5.0); Alkaline Phosphatase 56 U/L (46-116); Anion Gap 7 mmol/L (8-16); Aspartate Amino Transferase < 10 U/L (15-37); Bilirubin,Total 0.9 mg/dL (0.00-1.00); Blood Urea Nitrogen 19 mg/dL (7-18); Calcium 9.1 mg/dL (8.5-10.1); Carbon Dioxide 29 mmol/L (21-32); Chloride 104 mmol/L (98-108); Cholesterol 163 mg/dL (0-200); Estimated Glomerular Filt Rate > 60; Glucose 185 mg/dL (70-99); HDL Direct 41 mg/dL (40-60); LDL Cholesterol Calculated 103 mg/dL (<130); Osmolality Calculated 297 mOsm/kg (285-295); Potassium 4.8 mmol/L (3.5-5.1); Prostate Specific Antigen 2.6 ng/mL (< OR = 4.0); Sodium 140 mmol/L (136-145); Total Protein 6.3 g/dL (6.4-8.2); Triglycerides 97 mg/dL (0-150)
== END 2023-05-05 07:55 | disposition home or self-care (01) ==
PROVIDERS: PCP Family Medicine; Visit Provider Nurse Practitioner
DX: E04.2 Nontoxic multinodular goiter (principal); I10 Essential (primary) hypertension; Z12.5 Encounter for screening for malignant neoplasm of prostate; E78.2 Mixed hyperlipidemia; E11.9 Type 2 diabetes mellitus without complications
CPT/HCPCS: 36415; 76536; 80053; 80061; 83036; 84153; 85025; G0103

== ENCOUNTER 2024-05-08 07:43 | Outpatient (CLI) | payer MEDICARE, SELFPAY ==
[2024-05-08 08:01] LABS: Basophils Absolute Auto 0.06 K/mm3 (0.00-0.10); Basophils Percent Auto 0.8 % (0.0-1.0); Eosinophils Absolute Auto 0.21 K/mm3 (0.02-0.50); Eosinophils Percent Auto 2.6 % (1.0-6.0); Hematocrit 45.5 % (37.0-46.0); Hemoglobin 15.6 g/dL (12.4-15.3); Immature Granulocyte Absolute 0.05 K/mm3 (0.00-0.00); Immature Granulocyte Percent A 0.6 % (0.0-0.0); Lymphocytes Absolute Auto 2.25 K/mm3 (1.10-4.50); Lymphocytes Percent Auto 28.4 % (18.0-42.0); Mean Corpuscular HGB Conc 34.3 g/dL (32-36); Mean Corpuscular Hemoglobin 31.5 pg (27.0-31.0); Mean Corpuscular Volume 91.9 fL (78.0-102.0); Monocytes Absolute Auto 0.72 K/mm3 (0.10-0.90); Monocytes Percent Auto 9.1 % (2.0-11.0); Neutrophils Absolute Auto 4.64 K/mm3 (1.70-7.20); Neutrophils Percent Auto 58.5 % (50.0-70.0); Platelet Count Result 199 K/mm3 (150-420); Red Blood Count 4.95 M/mm3 (4.70-6.10); Red Cell Distribution Width 12.4 % (11.6-14.4); White Blood Count 7.9 K/mm3 (4.8-10.8)
[2024-05-08 08:34] LABS: Hemoglobin A1C 6.1 % (<5.7)
[2024-05-08 08:41] LABS: Alanine Aminotransferase 24 U/L (16-63); Albumin Level 3.6 g/dL (3.4-5.0); Alkaline Phosphatase 61 U/L (46-116); Anion Gap 8 mmol/L (4-12); Aspartate Amino Transferase 18 U/L (15-37); Bilirubin,Total 1.5 mg/dL (0.00-1.00); Blood Urea Nitrogen 22 mg/dL (7-18); Calcium 8.9 mg/dL (8.5-10.1); Carbon Dioxide 28 mmol/L (21-32); Chloride 103 mmol/L (98-108); Cholesterol 163 mg/dL (0-200); Estimated Glomerular Filt Rate > 60; Glucose 119 mg/dL (70-99); HDL Direct 22 mg/dL (40-60); LDL Cholesterol Calculated 119 mg/dL (<130); Osmolality Calculated 292 mOsm/kg (285-295); Potassium 4.4 mmol/L (3.5-5.1); Sodium 139 mmol/L (136-145); Thyroid Stimulating Hormone 0.92 uIU/mL (0.36-3.74); Total Protein 6.4 g/dL (6.4-8.2); Triglycerides 112 mg/dL (0-150)
== END 2024-05-08 07:44 | disposition home or self-care (01) ==
LOC: CHSLAB 07:47
PROVIDERS: PCP Family Medicine; Visit Provider Nurse Practitioner
DX: E78.2 Mixed hyperlipidemia (principal); I10 Essential (primary) hypertension; E11.9 Type 2 diabetes mellitus without complications; E04.1 Nontoxic single thyroid nodule
CPT/HCPCS: 36415; 80053; 80061; 83036; 84443; 85025